=== PATIENT | female | born 1930 | race Caucasian/White ===

== ENCOUNTER → 2017-09-21 | Outpatient (CLI) | payer MEDICARE, OTHER ==
[~2017-09-21] MED LIST: AFRIN15 M1 INH; ALLOPURINOL300 MG PO; ALPRAZOLAM0.25 M1 PO; ALPRAZOLAM0.25 MG PO; AMITRIPTYLINE H25 MG PO; AMLODIPINE BESY10 MG PO; ASA81 MG PO; ASPIR 8181 MG PO; ASPIRIN81 MG; ASPIRIN81 MG PEG; B-122500 MCG PO; BACTRIM DS1 EA PO; CARAFATE1 G1 PO; CARVEDILOL12.5 MG PO; CARVEDILOL25 MG PO; CEFPODOXIME PR200 MG PO; CEFUROXIME250 MG PO; CIPRO500 MG PO; DEXILANT60 MG PO; FEROSUL325 M1 PO; FERROUS SULFAT325 MG PO; FUROSEMIDE20 MG PO; FUROSEMIDE40 MG PO; GABAPENTIN300 MG PO; HEMOCYTE324 MG PO; HUMALOG100 UNITS/ SQ; LANTUS SOL300 UNIT/3 SC; LANTUS100 UNIT/1 SQ; LANTUS100 UNITS/ SQ; LEVOTHYROXINE50 MCG PO; LISINOPRIL10 MG PO; METHENAMINE HIPP1 GM PO; METOCLOPRAMIDE10 MG PO; METRONIDAZOLE500 MG PO; NITROFURANTOIN100 MG PO; NITROSTAT0.3 MG SL; NITROSTAT0.4 MG PO; NORVASC10 MG PO; NORVASC5 MG PO; NOVOLOG100 UNIT/1 SQ; NOVOLOG100 UNITS1 SQ; OMEPRAZOLE40 MG PO; PANTOPRAZOLE SO40 MG PO; POTASSIUM CITR10 ME1 PO; PROMETHAZINE HC25 M1 PO; TAMSULOSIN HCL0.4 MG PO; TRICOR145 MG PO; TYLENOL # 31 EA PO; VITAMIN D2000 UNIT PO; Z MELATONIN PO; Z TYLENOL PO; Z.0.ADVAIR 250-501 E IH; Z.0.AMBIEN5 MG PO; Z.0.AMITRIPTYLINE H5 PO; Z.0.AMLODIPINE BES2. PO; Z.0.CLONAZEPAM0.5 M1 PO; Z.0.CLONIDINE HCL0.1 PO; Z.0.CLONIDINE HCL0.3 PO; Z.0.COREG6.25 MG PO; Z.0.COZAAR50 MG PO; Z.0.DETROL LA4 MG PO; Z.0.DEXILANT60 MG PO; Z.0.GABAPENTIN300 MG PO; Z.0.LANTUS100 UNIT/1 SQ; Z.0.LEVOTHYROXINE50 PO; Z.0.LUNESTA3 MG PO; Z.0.LYRICA50 MG PO; Z.0.PANTOPRAZOLE SO4 PO; Z.0.POTASSIUM CITR10 PO; Z.0.PREDNISONE20 MG; Z.0.RAPAFLO8 MG PO; Z.0.REGLAN10 MG PO; Z.0.TAMSULOSIN HCL0. PO; Z.0.TRICOR145 MG PO; Z.0.VITAMIN D2000 UN PO; Z.0.VITAMIN D50000 U PO; Z.0.XOPENEX1.25 MG/3 IH; Z.1.AMOXICILLIN500 M PO; Z.1.HUMALOG100 UNIT/ SC; Z.1.HUMALOG100 UNIT/ SQ; ZOLPIDEM TARTRA10 MG PO; [UNRECOGNIZED DRUG - OTHER] PO; [UNRECOGNIZED DRUG - OTHER] TD
--- NOTE | 2017-09-21 12:59 | Diagnostic Imaging Report ---
PROCEDURE:US RETROPERITONEAL ( KIDNEY ). COMPARISON:CT abdomen/pelvis 06/12/16, renal ultrasound 08/12/2009 INDICATIONS:CHRONIC KIDNEY DISEASE STAGE III TECHNIQUE: Mills-scale and color sonographic images of the bilateral kidneys and bladder where obtained in transverse and longitudinal planes. FINDINGS: RIGHT KIDNEY: Measures 11.3 cm in length. Transverse cortical thickness is 10 mm (previously, 13 mm). Renal sinus fat is prominent. Cysts: None Solid masses: None Stones: None Hydronephrosis: None Echogenicity: Normal LEFT KIDNEY: Measures 12.1 cm in length. Transverse cortical thickness is 16 mm (previously, 17 mm). Renal sinus fat is prominent. Cysts: None Solid masses: None Stones: None Hydronephrosis: None Echogenicity: Normal Bladder: Well-distended and normal. Renal jets are visible. Prevoid volume is 134.5 cc. Postvoid volume is 10.9 cc. No post void residual. CONCLUSION: Mildly atrophic kidneys. Normal renal echotexture without mass. No hydronephrosis. No post void residual in the bladder. Dictated by: Hillary Mendoza M.D. on 09/21/2017 at 12:58 Electronically approved by: Hillary Mendoza M.D. on 09/21/2017 at 12:58
--- NOTE | 2017-09-21 13:02 | Diagnostic Imaging Report ---
PROCEDURE:US PELVIC (NON OB) SANDERS OR F/U COMPARISON:Renal ultrasound 08/12/2009. INDICATIONS:CHRONIC KIDNEY DISEASE STAGE III TECHNIQUE:Pelvic ultrasound using transabdominal technique. CONCLUSION: Please see accession number [id number] for report. Electronically approved by: Hillary Mendoza M.D. on 09/21/2017 at 13:01
== END ==
LOC: US 11:22
PROVIDERS: ATTEND Internal Medicine Nephrology
DX: N18.3 Chronic kidney disease, stage 3 (moderate) (principal)
CPT/HCPCS: 76770; 76857

== ENCOUNTER 2017-10-31 18:01 | Inpatient (IN) | payer MEDICARE, OTHER ==
[~2017-10-31] VITALS: Ht 160 cm; Wt 73.9 kg
--- OUTSIDE RECORDS SUMMARY | 2017-10-31 18:08 | XMS REPORT ---
[facility] Address Unknown Phone Unavailable Care Team Providers Care Oracle Ebs Developer Name Role Phone YAMILETH CARROLL Unavailable Unavailable SRINIVAS GIMENEZ Unavailable Unavailable NIRANJAN SANTACRUZ Unavailable Unavailable Problems This patient has no known problems. Allergies, Adverse Reactions, Alerts This patient has no known allergies or adverse reactions. Medications This patient has no known medications. Results Test Description Test Time Test Comments Text Results Atomic Results Result Comments US RENAL RETROPERITONEAL COMP [place] [address] Patient Name: BABS QUILES MR #: [id number] : 1930 Age/Sex: 87/F Req #: [id number] Adm Physician: Ordered by: YAMILETH CARROLL MD Report #: [id number] Location: Room/Bed: Procedure: [id number] US/US RENAL RETROPERITONEAL COMP Exam Date: Exam Time: REPORT STATUS: Signed PROCEDURE: US RETROPERITONEAL ( KIDNEY ). COMPARISON: CT abdomen/pelvis 06/12/16, renal ultrasound 08/12/2009 INDICATIONS: CHRONIC KIDNEY DISEASE STAGE III TECHNIQUE: Mills-scale and color sonographic images of the bilateral kidneys and bladder where obtained in transverse and longitudinal planes. FINDINGS: RIGHT KIDNEY: Measures 11.3 cm in length. Transverse cortical thickness is 10 mm (previously, 13 mm). Renal sinus fat is prominent. Cysts: None Solid masses: None Stones: None Hydronephrosis: None Echogenicity: Normal LEFT KIDNEY: Measures 12.1 cm in length. Transverse cortical thickness is 16 mm (previously, 17 mm). Renal sinus fat is prominent. Cysts: None Solid masses: None Stones: None Hydronephrosis: None Echogenicity: Normal Bladder: Well-distended and normal. Renal jets are visible. Prevoid volume is 134.5 cc. Postvoid volume is 10.9 cc. No post void residual. CONCLUSION: Mildly atrophic kidneys. Normal renal echotexture without mass. No hydronephrosis. No post void residual in the bladder. Dictated by: Ese Mendoza M.D. on 09/21 at 12:58 Electronically approved by: Ese Mendoza M.D. on 09/21 at 12:58 Dictated By: ESE MENDOZA MD 1258 Transcribed By : TONY on 09/21/17 1258 COPY TO: YAMILETH CARROLL MD US PELVIC (NON OB) SANDERS OR F/U [place] [address] Patient Name: BABS QUILES MR #: [id number] : 1930 Age/Sex: 87/F Req #: [id number] Adm Physician: Ordered by: YAMILETH CARROLL MD Report #: [id number] Location: US Room/Bed: Procedure: [id number] US/US PELVIC (NON OB) SANDERS OR F/U Exam Date: Exam Time: REPORT STATUS: Signed PROCEDURE: US PELVIC (NON OB) SANDERS OR F/U COMPARISON: Renal ultrasound 08/12/2009. INDICATIONS: CHRONIC KIDNEY DISEASE STAGE III TECHNIQUE: Pelvic ultrasound using transabdominal technique. CONCLUSION: Please see accession number [id number] for report. Electronically approved by: Ese Mendoza M.D. on 09/21/2017 at 13:01 Dictated By: ESE MENDOZA MD 1301 Transcribed By: TONY on 09/21/17 1301 COPY TO: YAMILETH CARROLL MD CT CERVICAL SPINE WO [place] [address] Patient Name: BABS QUILES MR #: [id number] : 1930 Age/Sex: 87/F Req #: [id number] Adm Physician: Ordered by: SRINIVAS GIMENEZ MD Report #: [id number] Location: ER Room/Bed: Procedure: [id number] CT/CT CERVICAL SPINE WO Exam Date: 05/23/17 Exam Time: 1132 REPORT STATUS: Signed Examination: CT CERVICAL SPINE WITHOUT CONTRAST HISTORY:Neck and left arm pain. COMPARISON:None. TECHNIQUE: Multidetector helical axial images were obtained without contrast from the foramen magnum to T1. Coronal and sagittal reformatted images were done. Bone and soft tissue windows were evaluated. FINDINGS: Alignment:Normal alignment and lordosis.. Vertebrae: Normal height and density. No acute fracture, infection or neoplasm. Disc space heights: Normal height with vacuum phenomenon at C4-C5 and C5-C6. Caliber of spinal canal: Developmentally normal. Posterior fossa and craniocervical junction: Foramen magnum patent. No Chiari 1 malformation. Soft tissues: Atherosclerotic calcification of the bilateral carotid bifurcations. Individual intervertebral disc levels: Anterior bridging osteophytosis from C5 through T1. C1-C2: Severe degenerative narrowing. C2-C3: Small central disc protrusion. Mild left neural foraminal narrowing due to uncovertebral and bilateral facet arthropathy. No right foraminal or canal stenosis. C3-C4: Small central disc osteophyte protrusion without canal stenosis. Mild right neural foraminal narrowing due to right uncovertebral and facet arthropathy. No left foraminal narrowing. C4-C5: Diffuse disc osteophyte complex, atherosclerotic calcification of the mid V2 segment of the right vertebral artery and bilateral uncovertebral arthropathy result in moderate to severe right foraminal narrowing. No left foraminal or canal stenosis. C5-C6: Bilateral uncovertebral and facet arthropathy. No canal or foraminal stenosis. C6-C7: Right uncovertebral and facet arthropathy result in mild right neural foraminal narrowing. No canal or left foraminal stenosis. C7-T1: No abnormality. IMPRESSION: 1. Degenerative change from C2-C3 through C6-C7 without canal stenosis. 2. Severe right foraminal narrowing at C4-C5, as above. 3. No acute abnormalities. Signed by: Dr. Mone Ko M.D. on 05/23/2017 12:09 PM Dictated By: MONE LEAL MD 08 Transcribed By: MARIAELENA on 05/23/171208 COPY TO: SRINIVAS GIMENEZ MD CHEST XRAY LINE PLACEMENT [place] [address] Patient Name: BABS QUILES MR #: [id number] : 1930 Age/Sex: 87/F Req #: [id number] Adm Physician: Ordered by: NIRANJAN SANTACRUZ MD Report #: [id number] Location: DX Room/Bed: Procedure: [id number] DX/CHEST XRAY LINE PLACEMENT Exam Date: 05/16/17 Exam Time: 1315 REPORT STATUS: Signed PROCEDURE: A single AP view of the chest. COMPARISON: Portable chest 01/16/2017. INDICATIONS: PICC LINE PLACEMENT FINDINGS: Lines/tubes: Right peripherally inserted central venous catheter with tip projecting over the expected region of the right atrium. Lungs: Left lung base atelectasis. Right lung is clear. No parenchymal mass. Pleura: There is no pleural effusion or pneumothorax. Heart and mediastinum: The heart and the mediastinum are unremarkable. Bones: No acute bony abnormality. Degenerative changes of the thoracic spine. IMPRESSION: No acute radiographic abnormality. Dictated by: Gaby Healy M.D. on 2016 at 13:51 Electronically approved by: Gaby Healy M.D. on 2016 at 13:51 Dictated By: GABY HEALY MD 1351 Transcribed By: TONY on 05/16/17 1351 COPY TO: NIRANJAN SANTACRUZ MD
[2017-10-31 20:06] LABS: BASOPHILS % 0.4 % (0.0-1.0); EOSINOPHILS # (AUTO) 0.5 (0.0-0.4); EOSINOPHILS % 6.6 % (0.0-6.0); HEMATOCRIT 37.1 % (34.2-44.1); HEMOGLOBIN 12.4 g/dL (12.0-16.0); LYMPHOCYTES # (AUTO) 1.9 (1.0-3.2); LYMPHOCYTES % 23.6 % (18.0-39.1); MEAN CORPUSCULAR HEMOGLOBIN 28.6 pg (28-32); MEAN CORPUSCULAR HGB CONC 33.4 g/dL (31-35); MEAN CORPUSCULAR VOLUME 85.5 fL (81-99); MONOCYTES # (AUTO) 0.4 (0.2-0.8); NEUTROPHILS % 64.1 % (38.7-80.0); PLATELET COUNT 147 x10e3/uL (140-360); RED BLOOD COUNT 4.34 x10e6/uL (3.6-5.1); RED CELL DISTRIBUTION WIDTH 15.4 % (11.7-14.4)
[2017-10-31 20:15] LABS: INR 1.18; PROTHROMBIN TIME 14.1 seconds (11.9-14.5)
[2017-10-31 20:16] LABS: PARTIAL THROMBOPLASTIN TIME 30.2 seconds (23.8-35.5)
[2017-10-31] MEDS ORDERED: CEFEPIME HCL 2 GM VIAL IV STA (20:20)
[2017-10-31 20:25] LABS: CLARITY,URINE TURBID (CLEAR); COLOR,URINE YELLOW (YELLOW)
--- NOTE | 2017-10-31 20:25 | Diagnostic Imaging Report ---
Portable chest x-ray CPT code 83218 INDICATION: Chest pain COMPARISON: Chest x-ray 01/16/2017, CT chest 05/31/2016 FINDINGS: Frontal view of the chest obtained at 2013 hours. The cardiac silhouette is mildly enlarged but stable. The intrapulmonary vascular marking are normal. The lungs demonstrate diffuse hyperinflation and calcifications of the tracheobronchial tree. Streaky bands of subsegmental atelectasis in the left midlung field. The costophrenic angles are sharp. There is no pneumothorax. The osseous structures are diffusely demineralized. No focal osseous lesions. Visualized upper abdomen is unremarkable. IMPRESSION: 1. Mild cardiomegaly. No vascular congestion. 2. Streaky airspace opacities in the left midlung field suggestive of atelectasis. No evidence of infiltrate. Signed by: Dr. Hillary Mendoza MD on 10/31/2017 8:21 PM
[2017-10-31 20:26] LABS: BILIRUBIN,URINE NEGATIVE (NEGATIVE); KETONES,URINE NEGATIVE (NEGATIVE); LEUKOCYTE ESTERASE ,URINE TRACE (NEGATIVE); NITRITE,URINE NEGATIVE (NEGATIVE); PROTEIN,URINE DIPSTICK TRACE (NEGATIVE); URINE UROBILINOGEN 0.2 mg/dL (0.2 - 1)
[2017-10-31 20:26] LABS: ALBUMIN 4.2 g/dL (3.5-5.0); ALBUMIN/GLOBULIN RATIO 1.1 (0.8-2.0); ANION GAP 15.4 mmol/L (8-16); CALCIUM 10.4 mg/dL (8.4-10.2); CREATININE, SERUM 1.88 mg/dL (0.57-1.11); POTASSIUM 3.4 mmol/L (3.5-5.1)
[2017-10-31] MEDS ORDERED: DEXTROSE 50% SYRINGE 50 ML IV STA ×2 (20:30→20:32)
[2017-10-31] MEDS ORDERED: ASPIRIN 81 MG CHEW TAB PO ONE (20:30)
[2017-10-31 20:32] LABS: CREATINE KINASE MB 6.6 ng/mL (0-5.0)
[2017-10-31] MEDS ORDERED: DEXTROSE 50% SYRINGE 50 ML IV ONE (20:34)
[2017-10-31 20:40] LABS: BACTERIA,URINE MODERATE /HPF; EPITHELIAL CELLS,URINE FEW /LPF
[2017-10-31] MEDS ORDERED: MEROPENEM 500MG 500 MG in SODIUM CHLORIDE 0.9% 50ML 50 ML IV STA (20:48)
[2017-10-31] MEDS ORDERED: HEPARIN 25,000U/0.45% NS 250ML 700 UNIT in SODIUM CHLORIDE 0.9% 250ML 0 ML IV SCH (21:15)
[2017-10-31] MEDS ORDERED: HEPARIN SOD (PORCINE) 5,000 UNIT/ML VIAL IV ONE (21:15)
[2017-10-31] MEDS ORDERED: DEXTROSE 50% SYRINGE 50 ML IV PRN (21:15)
[2017-10-31] MEDS ORDERED: ONDANSETRON HCL INJ 2 MG/ML VIAL IV PRN (21:15)
[2017-10-31] MEDS: NITROGLYCERIN 2% OINT 1 GM PKT TOP SCH (22:09)
[2017-10-31] MEDS: FAMOTIDINE 20 MG/2 ML VIAL IV SCH (22:09)
[2017-10-31] MEDS ORDERED: HYDRALAZINE HCL 20 MG/ML VIAL IV PRN (22:45)
[2017-10-31 23:53] VITALS: BP 163/62
[2017-11-01] VITALS (8 sets, daily range): BP systolic 138–176; BP diastolic 64–79
[2017-11-01] MEDS: NITROGLYCERIN 2% OINT 1 GM PKT TOP SCH (02:44)
[2017-11-01 06:48] LABS: BASOPHILS % 0.6 % (0.0-1.0); EOSINOPHILS # (AUTO) 0.4 (0.0-0.4); EOSINOPHILS % 6.3 % (0.0-6.0); HEMATOCRIT 31.5 % (34.2-44.1); LYMPHOCYTES # (AUTO) 1.6 (1.0-3.2); LYMPHOCYTES % 22.6 % (18.0-39.1); MEAN CORPUSCULAR HEMOGLOBIN 28.8 pg (28-32); MEAN CORPUSCULAR HGB CONC 34.6 g/dL (31-35); MEAN CORPUSCULAR VOLUME 83.3 fL (81-99); MONOCYTES # (AUTO) 0.4 (0.2-0.8); MONOCYTES % 6.3 % (4.4-11.3); NEUTROPHILS # (AUTO) 4.5 (2.1-6.9); NEUTROPHILS % 63.9 % (38.7-80.0); PLATELET COUNT 119 x10e3/uL (140-360); RED BLOOD COUNT 3.78 x10e6/uL (3.6-5.1); RED CELL DISTRIBUTION WIDTH 15.4 % (11.7-14.4)
[2017-11-01 07:04] LABS: HEMOGLOBIN 10.9 g/dL (12.0-16.0)
[2017-11-01 07:18] LABS: CREATINE KINASE MB 4.7 ng/mL (0-5.0)
[2017-11-01 07:43] LABS: ALANINE AMINOTRANSFERASE 9 IU/L (0-55); ALBUMIN 3.5 g/dL (3.5-5.0); ALBUMIN/GLOBULIN RATIO 1.1 (0.8-2.0); ALKALINE PHOSPHATASE 64 IU/L (40-150); ANION GAP 13.8 mmol/L (8-16); BLOOD UREA NITROGEN 54 mg/dL (7-26); BUN/CREATININE RATIO 36 (6-25); CALCIUM 9.5 mg/dL (8.4-10.2); CARBON DIOXIDE 25 mmol/L (22-29); CHLORIDE 107 mmol/L (98-107); CHOL/HDL RATIO 4.9 (3.0-3.6); CHOLESTEROL 171 MD/DL (0-199); CREATININE, SERUM 1.51 mg/dL (0.57-1.11); EST GLOMERULAR FILTRATION RATE 33 ML/MIN (60-); GLUCOSE 181 mg/dL (74-118); HDL CHOLESTEROL 35 MG/DL (40-60); POTASSIUM 3.8 mmol/L (3.5-5.1); SODIUM 142 mmol/L (136-145); TRIGLYCERIDES 506 MG/DL (0-149)
[2017-11-01 07:53] LABS: HEMATOCRIT 33.3 % (34.2-44.1); HEMOGLOBIN 11.3 g/dL (12.0-16.0)
[2017-11-01] MEDS: ALLOPURINOL 300 MG TAB PO SCH ×2 (09:00→09:45)
[2017-11-01] MEDS ORDERED: FENOFIBRATE 145 MG TAB PO SCH (09:00)
--- NOTE | 2017-11-01 09:25 | Consultation ---
DATE OF CONSULTATION: October 31, 2017 REASON FOR CONSULTATION: Chest pain. CONSULTING PHYSICIAN: Dr. Felix HPI: This is a pleasant 87-year-old female that presented with chest pain. According to the patient, yesterday she started having left substernal chest pain that felt like a stabbing pressure on a scale of 5/10 with no radiation. She stated it comes and goes. She took 1 nitro with no relief, and that she decided to come into the emergency room for evaluation. She denies any palpitations, any dizziness, any diaphoresis, or headaches. Troponin times 2 negative. EKG with no S/T abnormalities. Chest x-ray showed mild cardiomegaly with no vascular congestion. PAST MEDICAL HISTORY: Hypertension, diabetes, CHF, UTI, hyperlipidemia, neuropathy, heel spur, GERD, COPD, GI bleed, hypothyroidism, depression, renal insufficiency. PAST SURGICAL HISTORY: Cholecystectomy, bladder surgery, left breast lumpectomy, and partial hysterectomy. FAMILY HISTORY: Noncontributory. SOCIAL HISTORY: She lives at home with the family. ALLERGIES: SHE HAS MULTIPLE ALLERGIES. SEE CHART. REVIEW OF SYSTEMS: Negative except as mentioned above. PHYSICAL EXAMINATION VITAL SIGNS: Temperature 97, heart rate 82, blood pressure 138/65, respirations 14, oxygen saturation 97% on 2 L nasal cannula. GENERAL: She is alert, awake and oriented times 3. HEENT: Mucous membranes moist. NECK: Supple. LUNGS: Bilateral clear to auscultation. CARDIOVASCULAR: S1 and S2 present. ABDOMEN: Soft. NEUROLOGICAL: Intact. EXTREMITIES: With no edema. LABS: Sodium 142, potassium 3.8, chloride 107, CO2 25, BUN 54, creatinine 1.51, glucose 181. White blood cells 6.98, hemoglobin 10.9, hematocrit 35.5, and platelets 119,000. PT 14.1, PTT 30.2 and INR 1.18. IMPRESSION 1. Chest pain. 2. Hyperlipidemia. 3. Renal insufficiency. 4. Diabetes. 5. History of congestive heart failure. ASSESSMENT AND PLAN: She had a recent Lexiscan stress test 6 months ago in the clinic that was negative for any ischemia. Will go ahead and get an echocardiogram to reassess the LV and the valve function. Will get serial cardiac enzymes. Will continue nitro, statin and beta misti. Will go ahead and discontinue the heparin drip. Chest pain resolved. Further cardiac workup pending clinical course. Thank you for this consultation. DICTATED BY ALLYN MEDINA NP Job#: [id number] RI
[2017-11-01] MEDS: ISOSORBIDE MONONITRATE 30 MG TAB CR PO SCH ×2 (09:44→17:33)
[2017-11-01] MEDS: ASPIRIN 81 MG ENTERIC COATED PO SCH (09:44)
[2017-11-01] MEDS: CARVEDILOL 12.5 MG TAB PO SCH ×2 (09:44→21:14)
[2017-11-01] MEDS: INSULIN REGULAR, HUMAN 100 UNIT/1 ML 3ML VIAL SQ SCH ×4 (09:45→21:00)
[2017-11-01] MEDS: FAMOTIDINE 20 MG/2 ML VIAL IV SCH ×2 (09:45→21:14)
[2017-11-01] MEDS: FENOFIBRATE 145 MG TAB PO SCH (09:45)
--- NOTE | 2017-11-01 10:23 | History and Physical ---
CHIEF COMPLAINT: Chest pain. HISTORY OF PRESENT ILLNESS: This is an 87-year-old white woman who presented to [facility] Emergency Room with sudden onset of nonradiating left-sided chest pain. The patient describes the chest pain as a sharp nature, and it occurs intermittently. She is currently chest pain-free at this time. The patient also complains of shortness of breath, but this is a chronic issue since she suffers from diastolic heart failure and chronic bronchitis. The patient was also recently told that she has ESBL-producing E. coli urinary tract infection and was supposed to start a new antibiotic soon. The patient states she has urinary frequency as well as dysuria. In the emergency room, the patient had a chest x-ray done, which revealed mild cardiomegaly with streaky airspace opacities in the left mid lung suggestive of atelectasis, but no clear evidence of infiltrate was appreciated. In the emergency room, the patient was found to have a white blood cell count of 7800 with 64% segmented neutrophils. The patient's BUN and creatinine on admission were 55 and 1.22 respectively, but this morning they are 54 and 1.51 respectively. The patient's first 2 sets of cardiac enzymes were normal. The patient's triglycerides were elevated at a level of 506. The patient's B-type natriuretic peptide level was normal at 99. Urinalysis performed in the emergency room did reveal moderate bacteria with 11 to 20 white blood cells per high-power field and trace leukocyte esterase. The urine was also described as turbid and yellow in color. The patient was admitted for further evaluation and treatment. Cardiology states that within the last 6 months the patient had a normal outpatient nuclear stress test. REVIEW OF SYSTEMS GENERAL: No fever or chills. Weight has been stable. HEENT: No headache. No vision changes. CARDIOVASCULAR/RESPIRATORY: The patient complains of nonradiating left-sided chest pain, sharp in nature. Also complains of shortness of breath but not associated with the chest pain. No cough or chest congestion. GI: No nausea, vomiting, or constipation. : The patient complains of frequent urination as well as dysuria. As previously stated, the patient was diagnosed with ESBL-producing bacterial urinary tract infection. NEUROMUSCULAR: Denies any limb weakness but does complain of numbness in her feet secondary to diabetic peripheral neuropathy. PAST MEDICAL HISTORY 1. Recurrent urinary tract infections. 2. Stage-3 chronic kidney disease. 3. Chronic diastolic congestive heart failure. 4. Chronic nocturnal oxygen use. 5. 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 6. Chronic bronchitis. 7. Cervical disk disease with episodes of radiculitis. 8. Hypertensive heart disease. 9. Hypothyroidism. 10. Dyslipidemia 11. GERD. SURGICAL HISTORY 1. Laparoscopic cholecystectomy. 2. Abdominal hernia repair. 3. Left breast lumpectomy (benign). FAMILY HISTORY: Mother of colon cancer. Father had type-2 diabetes mellitus. ALLERGIES 1. DARVOCET. 2. PENICILLIN. 3. MACROBID. SOCIAL HISTORY: This woman is and lives with her . No history of tobacco use. The patient states she drinks alcohol 1 drink a day. HOME MEDICATIONS 1. Losartan 25 mg a day. 2. Pantoprazole 40 mg b.i.d. 3. Xyzal 5 mg daily. 4. Vitamin D3 2,000 units daily. 5. Cipro 250 mg on Tuesday, Tuesday, and Tuesday (urinary tract infection prophylaxis). 6. Humalog insulin 10 units t.i.d. with meals. 7. Lantus insulin 15 units subcutaneous b.i.d. 8. Isosorbide mononitrate 30 mg daily. 9. Methenamine 1 tablet b.i.d. 10. Levothyroxine 50 mcg daily. 11. Potassium chloride 10 mEq daily. 12. Gabapentin 300 mg t.i.d. 13. Furosemide 40 mg b.i.d. 14. Ferrous sulfate 325 mg on Tuesday, Tuesday, and Tuesday. 15. Carvedilol 25 mg b.i.d. 16. Aspirin 81 mg daily. 17. Amitriptyline 25 mg each bedtime. PHYSICAL EXAMINATION GENERAL: She is awake, alert and fully oriented. She is in no distress. Very pleasant and cooperative with exam. VITAL SIGNS: Blood pressure is 175/75, pulse 68, respiratory rate 18, temperature 97.1, oxygen saturation 98% on 2 L oxygen via nasal cannula. Height is 5 feet 3 inches, and weight is 163 pounds. Calculated body mass index is 29. INTEGUMENT: Skin is warm and dry. No pallor, jaundice or diaphoresis. HEENT: Anicteric sclerae with moist mucous membranes. NECK: Supple. CARDIOVASCULAR: Distant heart sounds. Regular rate and rhythm. LUNGS: No rales. No rhonchi. No wheezes. ABDOMEN: Benign. EXTREMITIES: No edema or deformity. NEUROLOGIC: Intact. DIAGNOSES 1. Extended-spectrum ufug-dwtidmnjg-drorxeneg E. coli urinary tract infection. 2. Vptda-dl-ywvhrcd renal failure. 3. Chronic bronchitis. 4. Type-2 diabetes mellitus with severe neuropathy. 5. Chronic diastolic congestive heart failure. 6. Atypical chest pain. 7. Left-sided pneumonia, likely gram-negative duong. PLAN 1. Consult cardiology. 2. Rule out myocardial infarction. 3. Follow renal function. 4. Continue intravenous antibiotics. 5. Blood glucose monitoring and control. 6. Continue congestive heart failure medical management with losartan, carvedilol and furosemide. I spent an hour in the care of this patient. Job#: [id number] MH MTDD
[2017-11-01] MEDS ORDERED: CEFEPIME HCL 1 GM VIAL IV SCH ×2 (14:00)
[2017-11-01] MEDS ORDERED: MEROPENEM 500MG 500 MG in SODIUM CHLORIDE 0.9% 50ML 50 ML IV SCH (14:00)
[2017-11-01] MEDS: MEROPENEM 500 MG VIAL IV SCH ×2 (15:12→21:15)
[2017-11-01 15:14] LABS: CREATINE KINASE MB 4.9 ng/mL (0-5.0)
--- NOTE | 2017-11-01 15:56 | Consultation ---
DATE OF CONSULTATION: November 01, 2017 NEPHROLOGY CONSULTATION REASON FOR THE CONSULT: Chronic kidney disease. HPI: This is a pleasant 87-year-old female who follows with Dr. Liriano as an outpatient. She came to the ER with substernal chest pain, nonradiating, scale 6/10, on and off and described it as pressure, worse with exertion, and mild shortness of breath. She uses oxygen during the night and p.r.n during the day. She is known to have hypertension, diabetes, CKD 3, chronic bronchitis, CHF diastolic, and recurrent UTIs with recent urine culture showing E. coli ESBL, sensitive only to few medications in the IV form; however, she has been on ciprofloxacin p.o. for prophylaxis and follows with Dr. Leong as an outpatient. She was told that she has to come to the ER given her resistance to p.o. antibiotics. In the ER, the patient was admitted. She is having some frequency and dysuria and today, she does not have a chest pain as we are covering today. She is afebrile and she is on nasal cannula oxygen. We are consulted given she has history of CKD. PAST MEDICAL HISTORY: As mentioned above. PAST SURGICAL HISTORY: Status post cholecystectomy and abdominal hernia repair, left breast lumpectomy, which was benign as per records. REVIEW OF SYSTEMS: Negative otherwise. FAMILY HISTORY: Positive for hypertension and diabetes. ALLERGIES: SHE HAS MULTIPLE ALLERGIES PER RECORDS. PLEASE REFER TO THE RECORDS. SOCIAL HISTORY: She is , living with her . No smoking, alcohol, or IV drug abuse. PHYSICAL EXAMINATION VITAL SIGNS: Today, blood pressure 175/75, heart rate 69, temperature 97.1. GENERAL APPEARANCE: No acute distress. HEAD, EARS, EYES, NECK: No lymphadenopathy. HEART: Regular rate and rhythm. LUNGS: Bibasilar rales. ABDOMEN: Soft, nontender. EXTREMITIES: No edema. DIAGNOSTIC DATA: She had a chest x-ray was done and it showed mild cardiomegaly, no vascular congestion, left mid lung field suggestive of atelectasis. LABORATORY DATA: Today, her hemoglobin 11.3, white count 7.8. She has sodium of 142, potassium 3.8, BUN 54, creatinine from 1.8 came down to 1.5, and her BNP is 99.3 and her albumin is 3.5, and her cardiac enzymes are negative with troponin 0.007. ASSESSMENT AND PLAN 1. Chronic kidney disease, stage 3. The patient's creatinine baseline is between 1.2 to 1.4. It was elevated at 1.8, could be in the setting of urinary tract infection. The patient's creatinine today is back to baseline. We will not do further workup. We will just monitor her labs and kidney function with the urine output closely. 2. Electrolytes. Her potassium is within normal range. 3. Hypertension. Hold on SHY inhibitor and ARB until creatinine stabilizes. In the meantime, given her blood pressure is high, I am going to add nifedipine and continue carvedilol. 4. Diabetes. Monitor blood sugar. She is on insulin per primary team. 5. Recurrent urinary tract infection with extended-spectrum beta-lactamases Escherichia coli, sensitive only to intravenous medications. The patient is on meropenem per ID, adjusted according to GFR and the patient is requesting if she can get that at home and get a PICC line versus going to long-term acute care facility for intravenous antibiotics. 6. Chronic obstructive pulmonary disease and bronchitis. She uses oxygen at night. Encourage spirometer given atelectasis on chest x-ray. 7. Volume status. Looks clinically compensated on chest x-ray with no congestion. 8. Chest pain, resolved. Cardiac enzymes are negative. Thank you for the consult. We will update the primary team for further recommendations. Job#: [id number] MARIZOL
--- NOTE | 2017-11-01 16:15 | Consultation ---
DATE OF CONSULTATION: November 01, 2017 REASON: UTI. This patient is well known to me. She is a very pleasant 87-year-old white female who has history of bacteriuria, clinical and on suppressive oral antibiotic as an outpatient. She came to the emergency room yesterday complaining of chest pain. However, urine culture was done and recently showed she had E. coli, which was ESBL. The patient when I saw her she is complaining of urgency and frequency and some suprapubic discomfort, which she had for the last couple of days according to her. Patient has been taking Cipro as an outpatient. The patient does have an underlying history of chronic kidney disease, which she has been seen by nephrology as an outpatient. The patient was admitted for chest pain. Infectious disease was consulted because her ESBL and recommended to start on meropenem. Patient is currently laying in bed comfortably. She is complaining of some urgency and frequency. PAST MEDICAL HISTORY: Bacteruria, recurrent UTI, chronic kidney disease, stage 3, chronic congestive heart failure, severe osteoarthritis, chronic nocturnal oxygen use, diabetes mellitus, type 2 with peripheral neuropathy, chronic bronchitis, cervical disk disease, degenerative joint disease of the spine, hypertension with heart disease, hypothyroidism, dyslipidemia, GERD. SURGICAL HISTORY: Laparoscopic cholecystectomy, abdominal hernia repair, left breast lumpectomy. SOCIAL HISTORY: Does not smoke. No drug abuse or alcohol abuse. ALLERGIES: DARVOCET, INSULIN AND MACROBID. REVIEW OF SYSTEMS HEENT: At the present time, there is no headache, vision change or hearing change. GI: There is no nausea. No vomiting. No diarrhea. CARDIAC: There is no arrhythmia or chest pain at the present time or arrhythmia. JOINTS: She has chronic aches and pains, but nothing really acute. PSYCH: There is no depression or anxiety. All other systems within normal limits. Laboratory data reviewed. MEDICATION LIST: She is on: 1. Losartan 25 mg daily. 2. Pantoprazole. 3. Xyzal. 4. Vitamin D3. 5. She was on Cipro. 6. Insulin. 7. Levothyroxine. 8. Potassium chloride. 9. Gabapentin. 10. Carvedilol. REVIEW OF SYSTEMS: At the present time, 14-point all reviewed and within normal limits. Her chart was reviewed. LABORATORY DATA: Reviewed. Her blood cultures are still pending. Her urine culture showed gram-negative rods. White count 7.85, hemoglobin 12, hematocrit 37. Her sodium is 142, potassium 3.8, creatinine 1.5. PHYSICAL EXAMINATION GENERAL: She is currently alert and oriented. Does not seem to be in acute distress. VITALS: Stable. Currently afebrile. HEENT: Normocephalic. Not icteric. NECK: Supple. No JVD. No thyromegaly. CHEST: Clear bilaterally. HEART: S1 and S2. No S3, S4 or murmur. ABDOMEN: Soft. Bowel sounds present. No tenderness. EXTREMITIES: No edema. IMPRESSION 1. Urinary tract infection/probably cystitis: May be early pyelonephritis. It is hard to tell. Will put her on meropenem 500 mg. Discussed with renal. Will do q.8 h. for the time being. Recheck CBC. Recheck Chem panel. Will follow with you. 2. Chest pain: Cardiology is following. 3. Other medical problems listed above: All seem to be stable at the present time. Discussed with internal medicine. Job#: [id number] ISHMAEL
[2017-11-01] MEDS ORDERED: ACETAMINOPHEN 325 MG TAB PO PRN (23:30)
[2017-11-01] MEDS ORDERED: TRAMADOL HCL 50 MG TAB PO PRN (23:30)
[2017-11-02] VITALS: BP 175/74
[2017-11-02 04:00] VITALS: BP 145/91
[2017-11-02 06:35] LABS: BASOPHILS % 0.5 % (0.0-1.0); EOSINOPHILS # (AUTO) 0.5 (0.0-0.4); HEMATOCRIT 33.1 % (34.2-44.1); HEMOGLOBIN 10.9 g/dL (12.0-16.0); LYMPHOCYTES # (AUTO) 1.2 (1.0-3.2); MEAN CORPUSCULAR HEMOGLOBIN 28.4 pg (28-32); MEAN CORPUSCULAR HGB CONC 32.9 g/dL (31-35); MEAN CORPUSCULAR VOLUME 86.2 fL (81-99); MONOCYTES # (AUTO) 0.4 (0.2-0.8); MONOCYTES % 6.9 % (4.4-11.3); NEUTROPHILS # (AUTO) 3.8 (2.1-6.9); NEUTROPHILS % 63.4 % (38.7-80.0); PLATELET COUNT 118 x10e3/uL (140-360); RED BLOOD COUNT 3.84 x10e6/uL (3.6-5.1); RED CELL DISTRIBUTION WIDTH 15.6 % (11.7-14.4)
[2017-11-02 06:56] LABS: ALBUMIN 3.5 g/dL (3.5-5.0); ALBUMIN/GLOBULIN RATIO 1.2 (0.8-2.0); ANION GAP 13.1 mmol/L (8-16); CALCIUM 9.6 mg/dL (8.4-10.2); CREATININE, SERUM 1.22 mg/dL (0.57-1.11); POTASSIUM 4.1 mmol/L (3.5-5.1)
[2017-11-02 08:43] VITALS: BP 200/86
[2017-11-02] MEDS ORDERED: NIFEDIPINE CR 30 MG TAB PO SCH (09:00)
[2017-11-02] MEDS: MEROPENEM 500 MG VIAL IV SCH ×2 (09:29→17:37)
[2017-11-02] MEDS: ASPIRIN 81 MG ENTERIC COATED PO SCH (09:29)
[2017-11-02] MEDS: CARVEDILOL 12.5 MG TAB PO SCH (09:29)
[2017-11-02] MEDS: FENOFIBRATE 145 MG TAB PO SCH (09:30)
[2017-11-02] MEDS: ISOSORBIDE MONONITRATE 30 MG TAB CR PO SCH ×2 (09:30→17:37)
[2017-11-02] MEDS: INSULIN REGULAR, HUMAN 100 UNIT/1 ML 3ML VIAL SQ SCH ×4 (09:30→17:39)
[2017-11-02] MEDS: ALLOPURINOL 300 MG TAB PO SCH (09:30)
[2017-11-02] MEDS: FAMOTIDINE 20 MG/2 ML VIAL IV SCH (09:30)
[2017-11-02 12:00] VITALS: BP 183/79
--- NOTE | 2017-11-02 13:48 | Diagnostic Imaging Report ---
PROCEDURE:CHEST XRAY LINE PLACEMENT TECHNIQUE:Portable AP chest INDICATION:PICC placement COMPARISON:[facility], DX, CHEST SINGLE (PORTABLE), 10/31/2017, 20:13. FINDINGS: See conclusion. CONCLUSION: 1. Right PICC terminating in the low SVC. 2. Trace left pleural effusion with adjacent airspace opacity in keeping with atelectasis and/or pneumonia. 3. Stable cardiomediastinal silhouette, with mild cardiomegaly and central vascular congestion. 4. Intact skeleton. Dictated by: Law Tena M.D. on 11/02/2017 at 13:49 Electronically approved by: Law Tena M.D. on 11/02/2017 at 13:49
[2017-11-02 16:00] VITALS: BP 166/72
[2017-11-02] MEDS ORDERED: FAMOTIDINE 20 MG TAB PO SCH (21:00)
[2017-11-03] MEDS ORDERED: NIFEDIPINE CR 30 MG TAB PO SCH (09:00)
--- NOTE | 2017-11-03 09:39 | Discharge Summary ---
ADMIT DIAGNOSES 1. Sepsis secondary to extended spectrum beta-lactamase Escherichia coli urinary tract infection. 2. Ysdtc-ne-tljufhf renal failure. 3. Chronic bronchitis. 4. 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 5. Chronic diastolic congestive heart failure. 6. Atypical chest pain. 7. Left-sided pneumonia, likely gram-negative duong. DISCHARGE DIAGNOSES 1. Sepsis secondary to extended spectrum beta-lactamase Escherichia coli urinary tract infection, resolving. 2. Left-sided pneumonia, likely gram-negative duong. 3. Keeav-kd-nhfigvg diastolic congestive heart failure. 4. Chronic bronchitis. 5. Acute renal failure, resolved. 6. Atypical chest pain, resolved. 7. Type 2 diabetes mellitus with diabetic peripheral neuropathy. HOSPITAL COURSE: This is an 87-year-old white woman was initially admitted to [facility] with the diagnosis of sepsis secondary to ESBL E. coli urinary tract infection. During this hospitalization, she was also diagnosed with left-sided pneumonia likely gram-negative duong. This strain of ESBL E. coli bacterial species was found to be sensitive to meropenem. The patient was also diagnosed with acute renal failure on admission. On admission, the patient's BUN and creatinine was 55 and 1.8 respectively. On the day of discharge, the patient's BUN and creatinine was 43 and 1.22 respectively. The decision was made to transfer the patient to a local long-term acute care facility, namely [facility] where she could receive intravenous antibiotics for her ESBL E. coli urinary tract infection, as well as her left-sided gram-negative duong pneumonia. The patient's brief hospitalization was unremarkable. The patient's condition on transfer was stable with an overall fair prognosis. DISCHARGE MEDICATIONS 1. Meropenem 500 mg intravenous every 8 hours. 2. Regular insulin sliding scale. 3. Isosorbide mononitrate 30 mg b.i.d. 4. Fenofibrate 72.5 mg a day. 5. Allopurinol 300 mg daily. 6. Famotidine 20 mg intravenously every 12 hours. 7. Nifedipine XL 30 mg daily. 8. Carvedilol 25 mg b.i.d. 9. Aspirin 81 mg daily. 10. Acetaminophen 325 mg 1 every 6 hours p.r.n. pain or fever. 11. Tramadol 50 mg p.o. q.6 h. p.r.n. pain. 12. Ondansetron 4 mg intravenous every 4 hours p.r.n. nausea and vomiting. FOLLOWUP INSTRUCTIONS: As previously stated. The patient will transfer to a local long-term acute care facility, namely [facility] where she will be under the care of her attending, namely myself, Dr. Orestes Knowles. ORESTES KNOWLES MD Job#: [id number] RI
== END 2017-11-02 19:49 | DRG 871 ==
LOC: ER 18:10 → ERHOLD 21:30 → IMCU 23:04 → OBSVTOIN 11-01 17:12
PROVIDERS: ADMIT Internal Medicine; ATTEND Internal Medicine
PROC: 02HV33Z Insertion of Infusion Device into Superior Vena Cava, Percutaneous Approach (ICD-10-PCS; principal; 2017-11-02)
DX: A41.9 Sepsis, unspecified organism (principal); I50.33 Acute on chronic diastolic (congestive) heart failure; J15.6 Pneumonia due to other Gram-negative bacteria; N17.9 Acute kidney failure, unspecified; I13.0 Hypertensive heart and chronic kidney disease with heart failure and stage 1 through stage 4 chronic kidney disease, or unspecified chronic kidney disease; E11.42 Type 2 diabetes mellitus with diabetic polyneuropathy; E11.22 Type 2 diabetes mellitus with diabetic chronic kidney disease; N39.0 Urinary tract infection, site not specified; B96.20 Unspecified Escherichia coli [E. coli] as the cause of diseases classified elsewhere; Z16.12 Extended spectrum beta lactamase (ESBL) resistance; N18.3 Chronic kidney disease, stage 3 (moderate); E11.649 Type 2 diabetes mellitus with hypoglycemia without coma; J44.9 Chronic obstructive pulmonary disease, unspecified; E03.9 Hypothyroidism, unspecified; R53.81 Other malaise; K21.9 Gastro-esophageal reflux disease without esophagitis; G47.33 Obstructive sleep apnea (adult) (pediatric); E78.5 Hyperlipidemia, unspecified; Z79.4 Long term (current) use of insulin; Z79.82 Long term (current) use of aspirin; F32.9 Major depressive disorder, single episode, unspecified; M50.10 Cervical disc disorder with radiculopathy, unspecified cervical region
CPT/HCPCS: 36415; 36569; 71045; 80053; 80061; 81001; 82550; 82553; 82948; 83735; 83880; 84484; 85014; 85018; 85025; 85610; 85730; 87086; 87186; 93005; 93306; 99284; G0378; J0360; J1644; J2185; J7050; J7799

== ENCOUNTER → 2018-01-16 | Outpatient (CLI) | payer MEDICARE, OTHER ==
[2018-01-16 16:05] LABS: CREATININE, SERUM 1.54 mg/dL (0.57-1.11)
== END | disposition home or self-care (01) ==
LOC: DX 15:20
PROVIDERS: ATTEND Internal Medicine
DX: N39.0 Urinary tract infection, site not specified (principal); Z16.24 Resistance to multiple antibiotics; Z53.09 Procedure and treatment not carried out because of other contraindication
CPT/HCPCS: 36415; 82565; 84520

== ENCOUNTER → 2018-01-17 | Outpatient (CLI) | payer MEDICARE, OTHER ==
[~2018-01-17] MED LIST changes: +FENTANYL CITRATE/PF 100MCG/2 ML INJ ONE
--- NOTE | 2018-01-17 08:20 | Diagnostic Imaging Report ---
PROCEDURE:ABDOMINAL ULTRASOUND COMPARISON:CT abdomen and pelvis without contrast 01/09/2010. INDICATIONS:Abdomen Distention FINDINGS: Liver: 15.1 cm in length in the right midclavicular line. Normal hepatic parenchymal echogenicity. No focal mass. Main portal vein: 1.2 cm in caliber. Hepatopedal flow. Gallbladder: Surgically removed. Common Bile Duct: 0.7 cm in caliber. No echogenic filling defect. Right kidney: 10.1 cm in length. No solid or cystic mass, echogenic calculi, or hydronephrosis. Normal renal cortical echogenicity. Left kidney: 12 cm in length. No solid or cystic mass, echogenic calculi, or hydronephrosis. Normal renal cortical echogenicity. Spleen: 12 cm in length. Uniform parenchymal echotexture. Pancreas: The visualized portions of the pancreas are normal. Inferior vena cava: Limited evaluation due to overlying bowel gas. Aorta: Limited evaluation due to overlying bowel gas. Ascites: None. CONCLUSION: Status post cholecystectomy. Otherwise unremarkable abdominal ultrasound. No ascites in this patient with reported history of abdominal distention. Dictated by: Edi Pineda M.D. on 01/17/2018 at 8:23 Electronically approved by: Edi Pineda M.D. on 01/17/2018 at 8:23
--- NOTE | 2018-01-17 12:32 | Diagnostic Imaging Report ---
PROCEDURE:IR PICC LINE INSERTION INDICATIONS:C-ARM ASSIST FOR PICC PLACEMENT Fluoroscopy time: 3 minutes 34 seconds Air Kerma: 125.0 mGy DESCRIPTION OF PROCEDURE: A description of the procedure, including risks, complications and benefits of the procedure were explained to the patient, who provided informed consent. Preliminary sonographic evaluation of the left upper extremity confirmed patency of the brachial vein, evidenced by compressibility. The left upper arm was then prepped and draped in the standard sterile fashion. A tourniquet was applied to the upper arm just distal to the shoulder. One percent lidocaine was infiltrated into the skin and subcutaneous tissues for local anesthesia. Then under continuous sonographic guidance a 21 gauge needle was used to access the left brachial vein. A 0.018 inch wire was advanced centrally under fluoroscopic guidance after removal of the tourniquet. Intravascular length to the cavoatrial junction was measured at 45.5 cm. The needle was exchanged over the wire for a 5 Welsh peel-away sheath. A 5 Welsh dual-lumen PICC was cut to length and advanced through the peel-away sheath. A 0.018 inch wire was advanced through the PICC and into the inferior vena cava to direct the PICC inferiorly. After removal of the wire, the PICC was noted to have retracted to the region of the confluence of the superior vena cava and azygos vein, secondary to upper extremity and thoracic venous tortuosity. Therefore, the wire was reintroduced through the catheter and advanced into the inferior vena cava. A second PICC was cut to length of 48.5 cm. The existing PICC was removed over the wire and the longer PICC was advanced over the wire, which was then removed. The catheter tip was positioned in the upper right atrium with a permanent fluoroscopic image stored. Each lumen showed adequate bidirectional flow and was flushed with sterile saline. The catheter was secured to the skin with a StatLock device and a sterile dressing was applied. Patient tolerated the procedure well without immediate complication. Findings: Patent left brachial vein.. CONCLUSION:Successful placement of a left upper extremity PICC without immediate complication. The PICC is cleared for immediate use. Dictated by: Edi Pineda M.D. on 01/17/2018 at 12:35 Electronically approved by: Edi Pineda M.D. on 01/17/2018 at 12:35
== END | disposition home or self-care (01) ==
LOC: US 07:34
DX: R14.0 Abdominal distension (gaseous) (principal); I11.0 Hypertensive heart disease with heart failure; I50.32 Chronic diastolic (congestive) heart failure; E03.9 Hypothyroidism, unspecified; E78.5 Hyperlipidemia, unspecified
CPT/HCPCS: 36415; 36569; 76700; 82948

== ENCOUNTER → 2018-03-17 | Outpatient (CLI) | payer MEDICARE, OTHER ==
[~2018-03-17] MED LIST changes: -FENTANYL CITRATE/PF 100MCG/2 ML INJ ONE
[2018-03-17 15:25] LABS: CREATININE, SERUM 1.69 mg/dL (0.57-1.11)
--- NOTE | 2018-03-17 17:40 | Diagnostic Imaging Report ---
EXAMINATION: CHEST XRAY LINE PLACEMENT COMPARISON: Chest x-ray 11/02/2017 INDICATION: PICC line placement, UTI/sepsis DISCUSSION: Frontal view of the chest obtained at 1713 hours. HEART AND MEDIASTINUM: Stable mild cardiomegaly LINES: Right PICC line terminates at the cavoatrial junction. No pneumothorax. LUNGS: Lung volumes are low. The pulmonary vasculature is mildly prominent but stable. No jayme consolidation. PLEURA: No pleural effusion or pneumothorax. BONES AND SOFT TISSUES: No focal osseous lesion. Stable degenerative changes. The soft tissues are normal. IMPRESSION: Right PICC line as described above. No pneumothorax. Mild prominence of the pulmonary vasculature is stable. Signed by: Dr. Hillary Mendoza MD on 03/17/2018 5:36 PM
== END ==
LOC: DX 14:31
PROVIDERS: ATTEND Internal Medicine
DX: A41.51 Sepsis due to Escherichia coli [E. coli] (principal); N39.0 Urinary tract infection, site not specified
CPT/HCPCS: 36415; 36569; 71045; 82565; 84520

== ENCOUNTER 2018-04-23 14:06 | Emergency (ER) | payer MEDICARE, OTHER ==
[~2018-04-23] VITALS: Ht 160 cm; Wt 73.9 kg
[2018-04-23] MEDS ORDERED: ALBUTEROL SULF 0.083% NEB SOLN 3 ML NEB NEB STA (14:44)
--- NOTE | 2018-04-23 15:44 | Diagnostic Imaging Report ---
EXAMINATION: CXR 2 VIEW - HOPD INDICATION: Cough for 2 or 3 days \[id number] \S\[id number] COMPARISON: Chest radiograph 03/17/2018 FINDINGS: PA and lateral views TUBES and LINES: Interval removal of the right PICC. LUNGS: Lungs are well inflated. Bilateral hilar peribronchial wall thickening. No new lobar consolidations. Bilateral interstitial edema. PLEURA: No pleural effusion or pneumothorax. HEART AND MEDIASTINUM: Mild enlargement of the cardiac silhouette is stable. Atherosclerotic calcifications of the aortic arch. BONES AND SOFT TISSUES: No acute osseous lesion. Soft tissues are unremarkable. UPPER ABDOMEN: No free air under the diaphragm. IMPRESSION: Bilateral interstitial edema with worsening peribronchial wall thickening may be due to worsening edema or superimposed atypical infection. Signed by: Dr. Cleopatra Bhatia M.D. on 04/23/2018 3:39 PM
[2018-04-23] MEDS ORDERED: AZITHROMYCIN 500MG/NS 250 ML 250 ML IV ONE (16:00)
[2018-04-23] MEDS ORDERED: MEROPENEM 1GM 100 ML IV ONE (16:00)
[2018-04-23] MEDS ORDERED: ACETAMINOPHEN 325 MG TAB PO ONE (16:15)
[2018-04-23 16:30] VITALS: BP 109/53
== END 2018-04-23 17:56 | disposition home or self-care (01) ==
LOC: FSED 14:06
DX: R05 Cough (principal); J18.9 Pneumonia, unspecified organism; N30.90 Cystitis, unspecified without hematuria; N28.9 Disorder of kidney and ureter, unspecified; I10 Essential (primary) hypertension; E11.9 Type 2 diabetes mellitus without complications; J44.9 Chronic obstructive pulmonary disease, unspecified
CPT/HCPCS: 71046; 87086; 87186; 93005; 94760; 99284; J0456; J2185

== ENCOUNTER 2018-06-15 18:36 | Observation (INO) | payer MEDICARE, OTHER ==
[~2018-06-15] VITALS: Ht 160 cm; Wt 74.9 kg
[2018-06-15] MEDS: FAMOTIDINE 20 MG TAB PO SCH (10:30)
[2018-06-15] MEDS ORDERED: NITROGLYCERIN 0.4 MG SUBL SL ONE (19:00)
--- NOTE | 2018-06-15 19:29 | Diagnostic Imaging Report ---
EXAMINATION: CXR 1 [facility] INDICATION: Shortness of breath. Chest pain COMPARISON: Chest radiograph 03/17/2018 FINDINGS: TUBES and LINES: None. LUNGS: Bilateral hilar peribronchial wall thickening. No lobar consolidations. Bilateral interstitial edema. PLEURA: No pleural effusion or pneumothorax. HEART AND MEDIASTINUM: Mild enlargement of the cardiac silhouette is stable. Atherosclerotic calcifications of the aortic arch. BONES AND SOFT TISSUES: No acute osseous lesion. Soft tissues are unremarkable. UPPER ABDOMEN: No free air under the diaphragm. IMPRESSION: Bilateral interstitial edema with peribronchial wall thickening may be due to edema or superimposed atypical infection. Signed by: Dr. Sandeep Hunter M.D. on 06/15/2018 7:26 PM
[2018-06-15] MEDS ORDERED: NITROGLYCERIN 2% OINT 1 GM PKT TOP ONE (19:30)
[2018-06-15] MEDS ORDERED: FUROSEMIDE INJ 10 MG/ML 4 ML VIAL IV ONE (19:45)
[2018-06-15 20:00] VITALS: BP 128/61
[2018-06-15] MEDS ORDERED: SODIUM CHLORIDE FLUSH 10 ML SYR INJ PRN (20:30)
[2018-06-15] MEDS ORDERED: ONDANSETRON HCL INJ 2 MG/ML VIAL IV PRN (20:30)
[2018-06-15] MEDS ORDERED: MORPHINE SULFATE 2 MG/ML SYR IV PRN (20:30)
[2018-06-15] MEDS ORDERED: NITROGLYCERIN 0.4 MG SUBL SL PRN (20:30)
[2018-06-15] MEDS ORDERED: DEXTROSE 50% SYRINGE 50 ML IV PRN (21:00)
[2018-06-15] MEDS: INSULIN REGULAR, HUMAN 100 UNIT/1 ML 3ML VIAL SQ SCH (21:00)
[2018-06-15 23:25] VITALS: BP 128/61
[2018-06-16] VITALS (8 sets, daily range): BP systolic 108–178; BP diastolic 60–84
[2018-06-16 05:14] LABS: BASOPHILS % 0.4 % (0.0-1.0); EOSINOPHILS # (AUTO) 0.5 (0.0-0.4); EOSINOPHILS % 7.5 % (0.0-6.0); HEMOGLOBIN 11.4 g/dL (12.0-16.0); LYMPHOCYTES # (AUTO) 2.1 (1.0-3.2); LYMPHOCYTES % 30.2 % (18.0-39.1); MEAN CORPUSCULAR HEMOGLOBIN 26.5 pg (28-32); MEAN CORPUSCULAR HGB CONC 32.6 g/dL (31-35); MEAN CORPUSCULAR VOLUME 81.4 fL (81-99); MONOCYTES # (AUTO) 0.5 (0.2-0.8); MONOCYTES % 7.1 % (4.4-11.3); NEUTROPHILS # (AUTO) 3.8 (2.1-6.9); NEUTROPHILS % 54.7 % (38.7-80.0); PLATELET COUNT 151 x10e3/uL (140-360); RED CELL DISTRIBUTION WIDTH 15.6 % (11.7-14.4)
[2018-06-16] MEDS: NITROGLYCERIN 2% OINT 1 GM PKT TOP SCH ×3 (05:38→12:57)
[2018-06-16 05:46] LABS: CREATINE KINASE MB 1.8 ng/mL (0-5.0)
[2018-06-16 06:28] LABS: ANION GAP 14.5 mmol/L (8-16); CREATININE, SERUM 0.99 mg/dL (0.57-1.11); POTASSIUM 3.5 mmol/L (3.5-5.1)
[2018-06-16] MEDS ORDERED: FUROSEMIDE INJ 10 MG/ML 4 ML VIAL IV NR (07:30)
[2018-06-16] MEDS: INSULIN REGULAR, HUMAN 100 UNIT/1 ML 3ML VIAL SQ SCH ×2 (07:30→11:30)
[2018-06-16] MEDS ORDERED: POTASSIUM CHLORIDE 10MEQ EA PO NR ×2 (07:30→11:45)
--- NOTE | 2018-06-16 08:14 | History and Physical ---
CHIEF COMPLAINT: Chest discomfort. HISTORY OF PRESENT ILLNESS: This is 88-year-old white woman, who presented to [facility] emergency room with sudden onset of retrosternal chest pressure that radiates to her left shoulder and left upper extremity. This chest pressure was associated with shortness of breath, but no nausea or diaphoresis. The patient states the entire episode lasted approximately 30 minutes. Twelve-lead EKG done in the emergency room revealed poor R-wave progression in anterior leads, but otherwise no acute ischemic changes are appreciated. Patient's initial cardiac enzymes were normal. In the emergency room, patient was found to have BUN and creatinine of 48 and 0.99 respectively. Patient's potassium is 3.5. White blood cell count is 6800 with 54% segmented neutrophils. Hemoglobin is 11.4 g/dL. Chest x-ray performed in the emergency room revealed mild cardiomegaly with bilateral interstitial edema with peribronchial thickening, which radiologist felt could be due to either edema or superimposed typical infection. The patient was admitted for further evaluation and treatment. REVIEW OF SYSTEMS: GENERAL: Weight has been stable. No fever or chills. HEENT: No headaches. No visual changes. CARDIOVASCULAR/RESPIRATORY: Chest pain as per HPI. States that prior to chest pain, she was not experiencing any upper respiratory infection type symptoms. Patient states she did receive influenza vaccine this season. The patient, however, does have chronic cough. GI: No nausea, vomiting, diarrhea, or constipation. : Patient has history of recurrent urinary tract infections, but at this time is not complaining of any urinary tract infection type symptoms. NEUROMUSCULAR: Patient complained of severe pain in her feet secondary to diabetic peripheral neuropathy. She also has chronic back pain, moreover in the last 2 months. She has had left-sided neck pain. PAST MEDICAL HISTORY: 1. Type 2 diabetes mellitus with diabetic peripheral neuropathy. 2. Chronic bronchitis. 3. Chronic diastolic congestive heart failure. 4. Hypertensive heart disease. 5. Stage 2 chronic kidney disease. 6. Recurrent urinary tract infections. 7. Chronic nocturnal oxygen use. 8. Cervical disk disease with episodes of radiculitis. 9. Hypothyroidism. 10. Dyslipidemia. 11. GERD. SURGICAL HISTORY: 1. Laparoscopic cholecystectomy. 2. Abdominal hernia repair. 3. Left breast lumpectomy (benign). FAMILY HISTORY: Mother of colon cancer. Father had type 2 diabetes mellitus. ALLERGIES: 1. PENICILLIN. 2. LEVOTHYROXINE. 3. NITROFURANTOIN. 4. PROPOXYPHENE. 5. SULFAMETHOXAZOLE. SOCIAL HISTORY: This woman is , lives with her . No history of tobacco use. Patient states she does drink usually 1 alcohol drink daily. HOME MEDICATIONS: 1. Allopurinol 300 mg daily. 2. Alprazolam 0.25 mg once daily as needed for anxiety. 3. Amitriptyline 25 mg daily. 4. Aspirin 81 mg daily. 5. Carvedilol 12.5 mg b.i.d. 6. Vitamin D3 2000 units daily. 7. Fenofibrate 145 mg daily. 8. Hemocyte 325 mg b.i.d. 9. Furosemide 40 mg daily. 10. Gabapentin 300 mg nightly. 11. NovoLog insulin 10 units 3 times daily with meals. 12. Levothyroxine 50 mcg daily. 13. Nitroglycerin 0.4 mg 1 sublingual every 5 minutes p.r.n. chest pain. 14. Pantoprazole 40 mg daily. 15. Promethazine 25 mg t.i.d. p.r.n. nausea, vomiting. PHYSICAL EXAMINATION: GENERAL: She is awake, alert, and fully oriented, in no distress. Very pleasant and cooperative with exam. VITAL SIGNS: Height is 5 feet 3 inches. Weight is 167 pounds. BMI is 30. Blood pressure at this time is 133/60, pulse 52, respiratory rate is 18, oxygen saturation 96% on room air, temperature 96.4. INTEGUMENT: Skin is warm and dry. No pallor, jaundice, or diaphoresis. HEENT: Anicteric sclerae with moist mucous membranes. NECK: Supple. No evidence of jugular venous distention. CARDIOVASCULAR: Distant heart sounds. Regular rate and rhythm with an S3 gallop. LUNGS: Patient has faint crackles bilaterally. ABDOMEN: Benign. EXTREMITIES: No edema or deformity. NEUROLOGICAL: Intact. ASSESSMENT: 1. Unstable angina. 2. Sykdd-hh-lvjyyeh diastolic congestive heart failure with preserved ejection fraction. 3. Type 2 diabetes mellitus with diabetic peripheral neuropathy. 4. Chronic bronchitis. 5. Hypertensive heart disease. PLAN: 1. Rule out myocardial infarction. 2. Order 2D echocardiogram. 3. Will check a B-type natriuretic peptide level to assess for intravascular volume overload. 4. Consult cardiology. 5. Would administer intravenous furosemide. 6. Will provide potassium supplementations as patient will be receiving intravenous furosemide. I spent 75 minutes in the care of the patient. Job#: [id number]
[2018-06-16] MEDS: FAMOTIDINE 20 MG TAB PO SCH (08:30)
[2018-06-16] MEDS ORDERED: REGADENOSON 0.4 MG/5 ML SYR IV ONE (08:34)
[2018-06-16] MEDS ORDERED: ASPIRIN 81 MG ENTERIC COATED PO SCH (09:00)
--- NOTE | 2018-06-16 09:19 | Consultation ---
DATE OF CONSULTATION: June 15, 2018 CARDIOLOGY CONSULTATION REASON FOR CONSULTATION: Chest pain. HPI: This is a pleasant 88-year-old female that presented with chest pain. According to her, she was sitting down about to eat when she started having a sudden right chest pain that started from the right side of her chest and radiated to the left on a scale of 10/10. She stated the chest was intense and went through her left shoulder to the left arm and neck that she presented to the emergency room for evaluation. She was at a free standing ER. Due to the severity of the chest pain, she was sent over here for further evaluation. She denied any palpitations, any dizziness, any diaphoresis, any headache, nausea, or vomiting. She stated the chest pain was accompanied with shortness of breath. Troponin was negative. BNP was 185. EKG showed normal sinus rhythm with no S/T abnormalities. Chest x-ray showed bilateral interstitial edema with peribronchial wall thickening due to possible edema or superimposed infection. PAST MEDICAL HISTORY: Hypertension, hypothyroidism, diabetes, diastolic CHF, UTI, hyperlipidemia, diabetic neuropathy, GERD, COPD, GI bleed, depression, CKD, pneumonia, and ESBL in the urine. PAST SURGICAL HISTORY: Cholecystectomy, bladder surgery, left breast lumpectomy, and partial hysterectomy. FAMILY HISTORY: Noncontributory. SOCIAL HISTORY: No smoking. No drinking. She lives at home with the family. ALLERGIES: SHE HAS MULTIPLE ALLERGIES. SEE CHART. REVIEW OF SYSTEMS: Negative except those mentioned above. She is positive with chest pain. PHYSICAL EXAMINATION VITAL SIGNS: Temperature 97, heart rate 63, blood pressure 133/60, respirations 20, and oxygen saturation 96% on room air. GENERAL: She is awake, alert and oriented times 3. HEENT: Mucous membrane moist. NECK: Supple. LUNGS: Bilateral clear to auscultation. CARDIOVASCULAR: S1 and S2 present. ABDOMEN: Soft. NEUROLOGICAL: Intact. EXTREMITIES: With no edema. LABS: Sodium 141, potassium 3.5, chloride 102, BUN 48, creatinine 0.99, glucose 92. White blood cells 6.89, hemoglobin 11.4, hematocrit 35, and platelets 151,000. IMPRESSION 1. Chest pain. 2. Hypertension. 3. Diabetes. 4. Hypothyroidism. 5. History of diastolic congestive heart failure. ASSESSMENT AND PLAN 1. She had a recent echocardiogram in October 2017 that showed normal systolic function. EF 55% to 60%. 2. Due to the symptoms of her chest pain, will go ahead and get a Lexiscan Myoview to rule out any occlusion. 3. Will continue her home medications. Further cardiac workup pending clinical course. Thank you for this consultation. DICTATED BY ALLYN MEDINA NP Job#: [id number] RI
[2018-06-16] MEDS ORDERED: NIFEDIPINE ER30 M1 PO (12:11)
[2018-06-16] MEDS ORDERED: tresiba SQ (12:11)
[2018-06-16] MEDS ORDERED: METOLAZONE5 MG PO (12:11)
[2018-06-16] MEDS ORDERED: POTASSIUM CHLO10 ME1 PO (12:11)
[2018-06-16] MEDS ORDERED: SENNA LAX8.6 MG PO (12:11)
[2018-06-16] MEDS ORDERED: ALBUTEROL0.63 MG/3 INH (12:11)
[2018-06-16] MEDS ORDERED: ISOSORBIDE MONO30 MG PO (12:11)
[2018-06-16] MEDS ORDERED: TYLENOL325 MG PO (12:11)
[2018-06-16] MEDS ORDERED: ULORIC80 MG PO (12:11)
[2018-06-16 12:15] LABS: CLARITY,URINE HAZY (CLEAR); COLOR,URINE YELLOW (YELLOW)
[2018-06-16 12:16] LABS: BILIRUBIN,URINE NEGATIVE (NEGATIVE); KETONES,URINE NEGATIVE (NEGATIVE); LEUKOCYTE ESTERASE ,URINE 1+ (NEGATIVE); NITRITE,URINE POSITIVE (NEGATIVE); PROTEIN,URINE DIPSTICK TRACE (NEGATIVE); URINE UROBILINOGEN 0.2 mg/dL (0.2 - 1)
[2018-06-16 12:28] LABS: BACTERIA,URINE MANY /HPF; EPITHELIAL CELLS,URINE FEW /LPF; RBC,URINE 0-5 /HPF (0-5); WBC,URINE (MAN) >50 /HPF (0-5)
[2018-06-16] MEDS ORDERED: ALBUTEROL SULF 0.083% NEB SOLN 3 ML NEB INH PRN (13:45)
[2018-06-16] MEDS ORDERED: CARVEDILOL 12.5 MG TAB PO SCH (13:45)
[2018-06-16] MEDS ORDERED: ACETAMINOPHEN 325 MG TAB PO PRN (13:45)
[2018-06-16] MEDS ORDERED: CEFEPIME HCL 1 GM VIAL IV SCH (13:45)
[2018-06-16] MEDS ORDERED: FUROSEMIDE 40 MG TAB PO SCH (14:00)
[2018-06-16 14:57] LABS: CREATINE KINASE MB 1.9 ng/mL (0-5.0)
[2018-06-16] MEDS ORDERED: CIPRO500 MG PO (15:29)
[2018-06-16] MEDS ORDERED: AMITRIPTYLINE HCL 25 MG TAB PO SCH (21:00)
[2018-06-16] MEDS ORDERED: GABAPENTIN 300 MG CAP PO SCH (21:00)
[2018-06-17] MEDS ORDERED: LEVOTHYROXINE SODIUM 50 MCG TAB PO SCH (06:00)
[2018-06-17] MEDS ORDERED: PANTOPRAZOLE SOD 40 MG TABEC PO SCH (07:30)
[2018-06-17] MEDS ORDERED: POTASSIUM CHLORIDE 10MEQ EA PO SCH (09:00)
[2018-06-17] MEDS ORDERED: NIFEDIPINE CR 30 MG TAB PO SCH (09:00)
[2018-06-17] MEDS ORDERED: ISOSORBIDE MONONITRATE 30 MG TAB CR PO SCH (09:00)
[2018-06-17] MEDS ORDERED: SENNOSIDES 8.6 MG TAB PO SCH (09:00)
[2018-06-17] MEDS ORDERED: FEBUXOSTAT 80 MG TAB PO SCH (09:00)
--- NOTE | 2018-06-19 08:53 | Discharge Summary ---
ADMIT DIAGNOSES: 1. Unstable angina. 2. Frnxo-eo-vdptlah diastolic congestive heart failure with preserved ejection fraction. 3. Type 2 diabetes mellitus with diabetic peripheral neuropathy. 4. Chronic bronchitis. 5. Hypertensive heart disease. DISCHARGE DIAGNOSES: 1. Anginal chest pain, resolved. 2. Normal chemical nuclear stress test. 3. Extended-spectrum beta-lactamase Escherichia coli urinary tract infection. 4. Chronic diastolic congestive heart failure. 5. Hypertensive heart disease. 6. Type 2 diabetes mellitus with diabetic peripheral neuropathy. HOSPITAL COURSE: This is an 88-year-old white woman who was initially admitted to [facility] with a diagnosis of anginal chest pain. Patient was seen by her soaping department supervisor, namely Dr. Gallo Archuleta. During this hospitalization, patient had serial cardiac enzymes as well as electrocardiograms performed that did not reveal any evidence of acute myocardial ischemia or infarction. The patient underwent a nuclear chemical stress test during this hospitalization, which was normal according to soaping department supervisor. The patient, however, was found to have ESBL E. coli urinary tract infection confirmed by urine cultures. Urine culture revealed ESBL E. coli bacterial species greater 100,000 colony-forming units per mL unit. This strain of ESBL E. coli bacterial species was found to be resistant to many antibiotics, but it was found to be sensitive to Carbapenem antibiotics such as ertapenem, imipenem, and meropenem. The patient was discharged home in stable condition. The final urine culture results were not available on this day of discharge, thus the patient was sent home on a 14-day course of oral ciprofloxacin 250 mg twice a day. Patient's condition on discharge was stable. DISCHARGE MEDICATIONS: 1. Oral ciprofloxacin will be discontinued. 2. Ertapenem 1 g intravenous daily for 21 days. 3. Allopurinol 300 mg daily. 4. Alprazolam 0.25 mg once daily as needed for anxiety. 5. Amitriptyline 25 mg daily. 6. Aspirin 81 mg daily. 7. Carvedilol 12.5 mg b.i.d. 8. Vitamin D3 2000 units daily. 9. Fenofibrate 145 mg daily. 10. Hemocyte 325 mg b.i.d. 11. Furosemide 40 mg daily. 12. Gabapentin 300 mg nightly. 13. NovoLog insulin 10 units subcutaneous t.i.d. with meals. 14. Levothyroxine 50 mcg daily. 15. Nitroglycerin 0.4 mg 1 sublingual every 5 minutes p.r.n. chest pain. 16. Pantoprazole 40 mg daily. 17. Promethazine 25 mg t.i.d. p.r.n. nausea, vomiting. FOLLOWUP INSTRUCTIONS: As previously stated, patient will be sent home on outpatient intravenous antibiotic therapy. Her oral ciprofloxacin regimen will be discontinued. As an outpatient, patient will have a peripherally inserted central catheter placed, and ertapenem 1 g intravenous daily for 21 days will be ordered. ORESTES KNOWLES MD Job#: [id number]
--- NOTE | 2018-06-21 12:40 | Cardiology Report ---
DATE OF STUDY: June 16, 2018 LEXISCAN NUCLEAR STRESS TEST INDICATIONS: Chest pain. DESCRIPTION OF PROCEDURE: After informed consent, the patient was brought to the stress lab. She was given 11 mCi of technetium 99 Myoview, and myocardial perfusion SPECT images were obtained in the horizontal long and short axis and vertical long axis. Subsequently, the patient was given 0.4 mg Lexiscan over 10 seconds. Patient was given 33 mCi of technetium 99 Myoview, and myocardial perfusion SPECT images were obtained in horizontal long axis and short axis and vertical long axis views. Gated images were also obtained. Patient tolerated the procedure without any complications. REPORT: Baseline EKG shows sinus rhythm at 72 beats per minute, normal axis, normal intervals, nonspecific ST-T changes. PARAMETERS 1. Resting heart rate is 72 beats per minute. 2. Maximum heart rate is 82 beats per minute. 3. Resting blood pressure 151/64 mmHg. 4. Maximum blood pressure 152/67 mmHg. REASON FOR TERMINATION: Endpoint attained. INTERPRETATION 1. Negative for chest pain. 2. Negative for arrhythmias. 3. Blood pressure response consistent with Lexiscan. 4. No significant ST-T changes seen during Lexiscan infusion compared to baseline. 5. Analysis of SPECT images reveals uniform radioisotope uptake in all segments of the myocardium without any significant perfusion defects. CONCLUSIONS 1. No evidence significant ischemia or infarction on this study. 2. No wall motion abnormalities. 3. Overall ejection fraction 71%. NOTE: This report was placed in another physician's box and then transferred to my box today. Job#: [id number]
== END 2018-06-16 16:54 | disposition home or self-care (01) ==
LOC: FSED 18:36 → ERHOLD 19:03 → IMCU 20:50
PROVIDERS: ADMIT Internal Medicine; ATTEND Internal Medicine
DX: I25.110 Atherosclerotic heart disease of native coronary artery with unstable angina pectoris (principal); R07.9 Chest pain, unspecified; N39.0 Urinary tract infection, site not specified; E11.22 Type 2 diabetes mellitus with diabetic chronic kidney disease; I13.0 Hypertensive heart and chronic kidney disease with heart failure and stage 1 through stage 4 chronic kidney disease, or unspecified chronic kidney disease; I50.32 Chronic diastolic (congestive) heart failure; N18.3 Chronic kidney disease, stage 3 (moderate); E78.5 Hyperlipidemia, unspecified; J44.9 Chronic obstructive pulmonary disease, unspecified; E11.42 Type 2 diabetes mellitus with diabetic polyneuropathy; M50.10 Cervical disc disorder with radiculopathy, unspecified cervical region; E03.9 Hypothyroidism, unspecified; K21.9 Gastro-esophageal reflux disease without esophagitis; Z80.0 Family history of malignant neoplasm of digestive organs; Z83.3 Family history of diabetes mellitus; Z88.0 Allergy status to penicillin; Z88.8 Allergy status to other drugs, medicaments and biological substances; Z79.4 Long term (current) use of insulin; B96.20 Unspecified Escherichia coli [E. coli] as the cause of diseases classified elsewhere; Z16.12 Extended spectrum beta lactamase (ESBL) resistance; Z99.81 Dependence on supplemental oxygen
CPT/HCPCS: 36415 ×2; 71045; 78452; 80048; 80053; 81001; 82550; 82553 ×2; 82948 ×2; 83880 ×2; 84484 ×2; 85025; 85610; 87086; 87186; 93005; 93017; 99284; A9502; G0378 ×2; J0692; J1817; J2785

== ENCOUNTER → 2019-03-01 | Outpatient (CLI) | payer MEDICARE, OTHER ==
[~2019-03-01] MED LIST changes: +ALBUTEROL0.63 MG/3 INH; +CLARITIN D PO; +D MANNOSE PO; +ISOSORBIDE MONO30 MG PO; +LASIX40 MG PO; +MAGNESIUM OXID400 MG PO; +METOLAZONE5 MG PO; +NIFEDIPINE ER30 M1 PO; +NIFEDIPINE20 MG PO; +POTASSIUM CHLO10 ME1 PO; +PRILOSEC10 M1 PO; +PROCARDIA XL30 MG PO; +RANITIDINE HCL300 M1 PO; +SENNA LAX8.6 MG PO; +SENNA-DOCUSATE1 EACH PO; +TRESIBA SC; +TYLENOL325 MG PO; +ULORIC80 MG PO; +tresiba SC; +tresiba SQ
--- NOTE | 2019-03-01 14:56 | Diagnostic Imaging Report ---
EXAM: Renal/Pelvic Ultrasound INDICATION: ^URINARY TRACT INFECTION COMPARISON: None TECHNIQUE: Transverse and longitudinal images of the kidneys and bladder were obtained. FINDINGS: Right Kidney: Length: 10.4 cm Appearance: Normal echogenicity. Collecting system: No hydronephrosis Stones: None Cyst/Mass: None Left Kidney: Length: 11.4 cm Appearance: Normal echogenicity. Collecting system: No hydronephrosis Stones: None Cyst/Mass: None Bladder: No stones or mass. Prevoid volume estimate of 48.1 cc. Postvoid images show complete emptying with no residual. Ureteral jets not seen. IMPRESSION: No renal calculi or hydronephrosis. Signed by: Jian Burkett MD on 03/01/2019 2:53 PM
--- NOTE | 2019-03-01 14:57 | Diagnostic Imaging Report ---
Exam: KUB - 2 views Clinical History: Renal calculi Comparison: Renal ultrasound of the same day. Findings: No radiographically apparent renal calculi. Nonobstructive bowel gas pattern. No free air. Status post cholecystectomy. Degenerative changes of the visualized spine. Impression: No radiographically apparent renal calculi. Signed by: Jian Burkett MD on 03/01/2019 2:54 PM
== END ==
LOC: US 13:48
PROVIDERS: ATTEND Urology
DX: Z87.442 Personal history of urinary calculi (principal); N39.0 Urinary tract infection, site not specified
CPT/HCPCS: 74018; 76770; 76857

== ENCOUNTER → 2019-04-13 | Outpatient (CLI) | payer MEDICARE, OTHER ==
[~2019-04-13] MED LIST changes: +TYLENOL325 M2 PO
[2019-04-13 17:11] LABS: BASOPHILS % 0.5 % (0.0-1.0); EOSINOPHILS # (AUTO) 0.5 (0.0-0.4); EOSINOPHILS % 5.9 % (0.0-6.0); HEMATOCRIT 39.1 % (34.2-44.1); HEMOGLOBIN 12.1 g/dL (12.0-16.0); LYMPHOCYTES # (AUTO) 2.2 (1.0-3.2); MEAN CORPUSCULAR HEMOGLOBIN 25.2 pg (28-32); MEAN CORPUSCULAR HGB CONC 30.9 g/dL (31-35); MEAN CORPUSCULAR VOLUME 81.3 fL (81-99); MONOCYTES # (AUTO) 0.4 (0.2-0.8); MONOCYTES % 5.4 % (4.4-11.3); NEUTROPHILS % 61.1 % (38.7-80.0); PLATELET COUNT 166 x10e3/uL (140-360); RED BLOOD COUNT 4.81 x10e6/uL (3.6-5.1); RED CELL DISTRIBUTION WIDTH 17.6 % (11.7-14.4)
--- NOTE | 2019-04-13 17:41 | Diagnostic Imaging Report ---
Exam: PA and lateral chest radiograph Clinical history: Preoperative clearance, shortness of breath Comparison: June 19, 2018 Findings: There is persistent cardiomegaly. Increased bibasilar pulmonary opacities are noted which may represent atelectasis versus early consolidation. There is no evidence of pleural effusion or pneumothorax. The regional osseous structures are unchanged. Signed by: Dr. Martin Sorto MD on 04/13/2019 5:38 PM
== END ==
LOC: RAD 05:00 → EDSTATUS 04-19 07:00
PROVIDERS: ATTEND Internal Medicine Gastroenterology
DX: Z01.818 Encounter for other preprocedural examination (principal); R13.10 Dysphagia, unspecified; R11.10 Vomiting, unspecified; Z53.8 Procedure and treatment not carried out for other reasons
CPT/HCPCS: 36415; 71046; 85025; 93005

== ENCOUNTER 2019-04-17 22:18 | Inpatient (IN) | payer MEDICARE, OTHER ==
[~2019-04-17] VITALS: Ht 160 cm; Wt 74.6 kg
[~2019-04-17 22:18] MED LIST changes: -LASIX40 MG PO; -PROCARDIA XL30 MG PO; -SENNA-DOCUSATE1 EACH PO; -TYLENOL325 M2 PO; -tresiba SC
--- OUTSIDE RECORDS SUMMARY | 2019-04-17 23:03 | XMS REPORT | Continuity of Care Document ---
Author Author [employer] Organization [employer] Address Unknown Phone Unavailable Care Team Providers Care Yarn Winder Name Role Phone [employer] Unavailable Unavailable Problems Problem Status Onset Date Classification Date Reported Comments Source Unspecified abdominal pain 08/18/2017 11/18/2017 [facility] [place] R10.31 - RIGHT LOWER QUADRANT PAIN Active 08/12/2017 [facility] [place] R51 - HEADACHE Active 10/20/2015 [facility] 496 - CHR AIRWAY OBST Active 09/27/2011 [facility] [place] Diaphragmatic hernia without obstruction or gangrene 11/18/2017 [facility] [place] NECK PAIN Active [facility] [place] Medications No Data Provided for This Section Allergies, Adverse Reactions, Alerts No Known Medication Allergies Immunizations No Data Provided for This Section Results No Data Provided for This Section Pathology Reports No Data Provided for This Section Diagnostic Reports Report Value Date Source Abdomen/Pelvis wo IV contrast CT Exam: CT scan of the abdomen and pelvis without contrast. Reason for Exam: - R10.9 Unspecified abdominal pain Comparison Exam: CT scan09/01/2007 Technique: Multiple axial images were obtained of the abdomen and pelvis. 5 mm slices were acquired without injection of intravenous contrast. Oral contrast was given. Reformatted sagittal and coronal images were obtained for additional diagnostic information. Total exam EXY=855 mGy-cm. This exam was performed according to our departmental dose-optimization program, which includes automated exposure control, adjustment of the MA and/or KV according to patient size and/or use of iterative reconstruction technique. Discussion: Visualized portions of the lung parenchyma are unremarkable. Moderate-sized fat- containing hiatal hernia. Note that this exam is suboptimal for evaluation of the abdominal and pelvic viscera secondary to lack of intravenous contrast. The patient is status post cholecystectomy. No biliary duct dilation. Liver is unremarkable for technique. Stomach is unremarkable. Pancreas, adrenal glands, and spleen are within normal limits. Kidneys are unremarkable. No hydronephrosis or hydroureter. No dilated loops of bowel. The appendix is normal. Scattered diverticuli seen within the large bowel, without evidence to suggest acute diverticulitis. Uterus is not identified. Correlate with surgical history. Bladder is unremarkable. No appreciable lymphadenopathy. No acute bony abnormality is appreciated. No suspicious osteoblastic or osteolytic lesions. No evidence seen for abdominal aortic aneurysm. Moderate amount of calcified plaque seen within the abdominal aorta and iliac arteries. Impression: 1. No acute abnormalities seen within the abdomen or pelvis. Moderate-sized fat- containing hiatal hernia. 08/12/2017 [facility] Spine cervical series DX EXAMINATION: Cervical spine 5 views DATE: 10/20/2015 INDICATION: Headache TECHNIQUE: AP, lateral, open mouth and oblique radiographs were obtained of the cervical spine. FINDINGS: 7 cervical vertebral bodies are identified in normal height and density. There is minimal retrolisthesis of C3 over C4 and grade 1 anterolisthesis of C4 over C5. There is intervertebral disc height loss. Normal interspinous distances. Facet joints are normal. Normal alignment of the atlantoaxial articulation. No fracture or subluxation. No prevertebral soft tissue mass. IMPRESSION: Spondylolisthesis throughout the cervical spine with no significant neuroforaminal stenosis. 10/20/2015 [facility] Hip min 2 views RIGHT HIP SERIES CLINICAL HISTORY: Hip pain. 719.45 COMPARISON IMAGING: None. FINDINGS: Two views were submitted for evaluation. Moderate osteoarthritis is present, including loss of joint space and marginal osteophytes. No fracture, dislocation, or radiopaque foreign body is seen. Soft tissues are unremarkable. IMPRESSION: Moderate osteoarthritis of the right hip. 08/29/2013 BAKARI Mcknighta Consultation Notes No Data Provided for This Section Discharge Summaries No Data Provided for This Section History and Physicals No Data Provided for This Section Vital Signs No Data Provided for This Section Encounters Location Location Details Encounter Type Encounter Number Reason For Visit Attending Provider ADM Date DC Date Status Source OD [id number] 496 - CHR AIRWAY OBST REJI MALDONADO 09/27/2011 Active [facility] [place] [facility] [id number] Reji Maldonado 10/20/2015 10/21/[facility] [place] [facility] Therapy Patients [id number] Reji Maldonado 10/29/2015 11/28/2015 [facility] [id number] Reji Maldonado 12/01/2015 12/31/2015 [facility] [place] [facility] [id number] Reji Maldonado 08/12/2017 08/13/2017 [facility] [place] Procedures No Data Provided for This Section Assessment and Plan No Data Provided for This Section Plan of Care No Data Provided for This Section Social History Social History Date Source No data available for this section 08/13/2017 [facility] [place] No data available for this section 12/31/2015 [facility] [place] No data available for this section 10/21/2015 [facility] [place] Family History No Data Provided for This Section Advance Directives No Data Provided for This Section Functional Status No Data Provided for This Section
[2019-04-17] MEDS ORDERED: ALBUTEROL SULF 0.083% NEB SOLN 3 ML NEB NEB STA (23:18)
[2019-04-17 23:28] LABS: BASOPHILS % 0.3 % (0.0-1.0); EOSINOPHILS # (AUTO) 0.4 (0.0-0.4); EOSINOPHILS % 3.2 % (0.0-6.0); HEMATOCRIT 34.7 % (34.2-44.1); HEMOGLOBIN 10.8 g/dL (12.0-16.0); LYMPHOCYTES # (AUTO) 1.7 (1.0-3.2); LYMPHOCYTES % 15.8 % (18.0-39.1); MEAN CORPUSCULAR HEMOGLOBIN 24.8 pg (28-32); MEAN CORPUSCULAR HGB CONC 31.1 g/dL (31-35); MEAN CORPUSCULAR VOLUME 79.8 fL (81-99); MONOCYTES # (AUTO) 0.6 (0.2-0.8); MONOCYTES % 5.3 % (4.4-11.3); NEUTROPHILS # (AUTO) 8.2 (2.1-6.9); NEUTROPHILS % 75.2 % (38.7-80.0); PLATELET COUNT 162 x10e3/uL (140-360); RED BLOOD COUNT 4.35 x10e6/uL (3.6-5.1); RED CELL DISTRIBUTION WIDTH 17.4 % (11.7-14.4)
[2019-04-17] MEDS ORDERED: IPRATROPIUM BROMIDE 0.02% 2.5 ML NEB NEB ONE (23:30)
[2019-04-17 23:38] LABS: INR 0.97; PROTHROMBIN TIME 13.4 seconds (11.9-14.5)
[2019-04-17 23:39] LABS: PARTIAL THROMBOPLASTIN TIME 37.8 seconds (23.8-35.5)
[2019-04-18] VITALS (9 sets, daily range): BP systolic 140–178; BP diastolic 60–80
[2019-04-18 00:02] LABS: ALBUMIN 3.1 g/dL (3.5-5.0); ALBUMIN/GLOBULIN RATIO 0.7 (0.8-2.0); ANION GAP 14.5 mmol/L (8-16); CALCIUM 9.7 mg/dL (8.4-10.2); CREATININE, SERUM 1.99 mg/dL (0.57-1.11); MAGNESIUM 2.2 MG/DL (1.3-2.1); POTASSIUM 4.5 mmol/L (3.5-5.1)
[2019-04-18 00:08] LABS: CREATINE KINASE MB 1.1 ng/mL (0-5.0)
--- NOTE | 2019-04-18 00:10 | Diagnostic Imaging Report ---
Examination: Single AP view of the chest. COMPARISON: Chest 2 views 04/13/2019 INDICATION: Shortness of breath IMPRESSION: 1. Lines and Tubes: None 2. Lungs are well-inflated. Bilateral patchy predominantly interstitial opacities extending from the chano likely reflecting interstitial pulmonary edema. Partial obscuration of the left hemidiaphragm suggesting a small left pleural effusion and likely associated left lower lobe atelectasis.. 3. Enlarged cardiac silhouette, stable . moderate central pulmonary venous congestion 4. No acute bony abnormalities. Signed by: Dr. Se Barber M.D. on 04/18/2019 12:06 AM
[2019-04-18 00:32] LABS: BILIRUBIN,URINE NEGATIVE (NEGATIVE); CLARITY,URINE SL CLOUDY (CLEAR); COLOR,URINE YELLOW (YELLOW); KETONES,URINE NEGATIVE (NEGATIVE); LEUKOCYTE ESTERASE ,URINE NEGATIVE (NEGATIVE); NITRITE,URINE POSITIVE (NEGATIVE); PROTEIN,URINE DIPSTICK NEGATIVE (NEGATIVE); URINE UROBILINOGEN 0.2 mg/dL (0.2 - 1)
[2019-04-18] MEDS ORDERED: LEVOTHYROXINE50 MCG PO (00:39)
[2019-04-18] MEDS ORDERED: MAGNESIUM OXID400 MG PO (00:39)
[2019-04-18] MEDS ORDERED: ASPIR 8181 MG PO (00:39)
[2019-04-18] MEDS ORDERED: RANITIDINE HCL300 M1 PO (00:40)
[2019-04-18] MEDS ORDERED: PROCARDIA XL30 MG PO (00:40)
[2019-04-18] MEDS ORDERED: CARVEDILOL25 MG PO (00:41)
[2019-04-18] MEDS ORDERED: GABAPENTIN300 MG PO (00:42)
[2019-04-18] MEDS ORDERED: LASIX40 MG PO (00:42)
[2019-04-18] MEDS ORDERED: SENNA-DOCUSATE1 EACH PO (00:43)
[2019-04-18] MEDS ORDERED: AMITRIPTYLINE H25 MG PO (00:44)
[2019-04-18] MEDS ORDERED: tresiba SC (00:45)
[2019-04-18 00:55] LABS: BACTERIA,URINE MANY /HPF; EPITHELIAL CELLS,URINE FEW /LPF; RBC,URINE 0-5 /HPF (0-5)
[2019-04-18] MEDS ORDERED: MEROPENEM 500MG 500 MG in SODIUM CHLORIDE 0.9% 50ML 50 ML IV SCH (01:00)
[2019-04-18] MEDS ORDERED: MEROPENEM 1GM 100 ML IV ONE (01:08)
[2019-04-18 01:32] LABS: ABG PCO2 54 mmHg (41-51); ABG PO2 70 mmHg (80-105)
[2019-04-18 01:33] LABS: ABG HCO3 33 mmol/L (23-28)
[2019-04-18] MEDS ORDERED: ONDANSETRON HCL INJ 2MG/ML 2ML 2 MG/ML VIAL IV PRN (01:45)
[2019-04-18] MEDS ORDERED: SODIUM CHLORIDE 0.9% 500ML 500 ML IV ONE (01:45)
--- OUTSIDE RECORDS SUMMARY | 2019-04-18 01:57 | XMS REPORT | Continuity of Care Document ---
Author Author [employer] Organization [employer] Address Unknown Phone Unavailable Care Team Providers Care Splunk Consultant Name Role Phone [employer] Unavailable Unavailable Problems Problem Status Onset Date Classification Date Reported Comments Source Unspecified abdominal pain 08/18/2017 11/18/2017 [facility] [place] R10.31 - RIGHT LOWER QUADRANT PAIN Active 08/12/2017 [facility] [place] R51 - HEADACHE Active 10/20/2015 [facility] 496 - CHR AIRWAY OBST Active 09/27/2011 [facility] [place] Diaphragmatic hernia without obstruction or gangrene 11/18/2017 [facility] [place] NECK PAIN Active [facility] [place] Medications No Data Provided for This Section [...] obtained for additional diagnostic information. Total exam DDH=663 mGy-cm. This exam was performed according to [...] Moderate-sized fat- containing hiatal hernia. 08/12/2017 [facility] [place] Spine cervical series DX EXAMINATION: Cervical spine [...] spine with no significant neuroforaminal stenosis. 10/20/2015 [facility] Hip min 2 views RIGHT HIP SERIES [...] ADM Date DC Date Status Source OD [id number] 496 - CHR AIRWAY OBST REJI MALDONADO 09/27/2011 Active [facility] [place] [facility] [place] [facility] [id number] Reji Maldonado 10/20/2015 10/21/2015 [facility] [place] OP Therapy Patients [id number] Reji Maldonado 10/29/2015 11/28/2015 [facility] [place] [facility] [place] [facility] Therapy Patients [id number] Reji Maldonado 12/01/2015 12/31/2015 [facility] [place] [facility] [place] [facility] [id number] Reji Maldonado 08/12/2017 08/13/2017 [facility] [place] Procedures No Data Provided for This Section Assessment and Plan No Data Provided for This Section Plan of Care No Data Provided for This Section Social History Social History Date Source No data available for this section 08/13/2017 [facility] [place] No data available for this section 12/31/2015 [facility] [place] No data available for this section 10/21/2015 [facility] [place] Family History No Data Provided for This Section Advance Directives No Data Provided for This Section Functional Status No Data Provided for This Section
[2019-04-18] MEDS ORDERED: INSULIN LISPRO 100 UNIT/1 ML 3ML VIAL SQ ONE ×2 (02:24→02:30)
[2019-04-18] MEDS ORDERED: SODIUM CHLORIDE 0.9% 1000ML 1,000 ML ONE (02:39)
[2019-04-18] MEDS: IPRATROPIUM BROMIDE 0.02% 2.5 ML NEB NEB SCH ×6 (03:50→23:00)
[2019-04-18] MEDS: ALBUTEROL SULF 0.083% NEB SOLN 3 ML NEB NEB SCH ×6 (03:50→23:00)
--- NOTE | 2019-04-18 04:12 | NUR ---
PT IS TRANSFERRED FROM ER AOX3 .NOTED WHEEZING ON AUSCULTATION LUNGS .SKIN WARM AND DRY TO TOUCH .BRUISES AT LEFT HAND .IV AT LEFT HAND 20G RUNNING NS AT 75CC/HR .ORIENTED THE PT TO THE ENVIRONMENT AND ASSESSMENT DONE .FAMILY AT THE BEDSIDE .CALL LIGHT WITH IN REACH .CONTINUE TO MONITOR
--- NOTE | 2019-04-18 07:00 | NUR ---
Pt received in bed. Pt is aox2 at this time. Denies any pain at this time. Breaths are even and unlabored on O2 3L/NC. Bed alarm on at this time.
--- NOTE | 2019-04-18 07:27 | NUR ---
BEDSIDE REPORT GIVEN TO THE ONCOMING NURSE
[2019-04-18 08:57] LABS: BASOPHILS % 0.3 % (0.0-1.0); EOSINOPHILS # (AUTO) 0.5 (0.0-0.4); EOSINOPHILS % 4.7 % (0.0-6.0); HEMATOCRIT 33.5 % (34.2-44.1); HEMOGLOBIN 10.2 g/dL (12.0-16.0); LYMPHOCYTES # (AUTO) 1.5 (1.0-3.2); LYMPHOCYTES % 13.9 % (18.0-39.1); MEAN CORPUSCULAR HEMOGLOBIN 24.6 pg (28-32); MEAN CORPUSCULAR HGB CONC 30.4 g/dL (31-35); MEAN CORPUSCULAR VOLUME 80.9 fL (81-99); MONOCYTES # (AUTO) 0.6 (0.2-0.8); MONOCYTES % 5.2 % (4.4-11.3); NEUTROPHILS % 75.8 % (38.7-80.0); PLATELET COUNT 153 x10e3/uL (140-360); RED BLOOD COUNT 4.14 x10e6/uL (3.6-5.1); RED CELL DISTRIBUTION WIDTH 17.5 % (11.7-14.4)
[2019-04-18 09:20] LABS: ALBUMIN 2.8 g/dL (3.5-5.0); ALBUMIN/GLOBULIN RATIO 0.7 (0.8-2.0); ANION GAP 12.1 mmol/L (8-16); CALCIUM 9.5 mg/dL (8.4-10.2); CREATININE, SERUM 1.43 mg/dL (0.57-1.11); POTASSIUM 4.1 mmol/L (3.5-5.1)
[2019-04-18 09:26] LABS: CREATINE KINASE MB 0.9 ng/mL (0-5.0)
[2019-04-18] MEDS: MEROPENEM 500MG/ NS 50ML 50 ML IV SCH ×2 (09:41→21:44)
[2019-04-18] MEDS ORDERED: DEXTROSE 50% SYRINGE 50 ML IV PRN (10:00)
--- NOTE | 2019-04-18 10:42 | NUR ---
SPOKE WITH SON PARVIN, HE STATES HE IS CONCERNED DUE TO HIS BROTHER WANTING HIS MOTHER TO GO TO [place] WHEN FAMILY AND PT WANT TO BE SEEN AT [facility]. SPOKE WITH PT WHOM IS ALERT AND ORIENTED AND STATES SHE WAS TO REMAIN HERE AND SEE HER PCP DR KNOWLES. SHE AND PARVIN BOTH CONFIRM SHE WAS JUST AT FAMILY [employer] MACHINE OPERATOR DRAWING UP WILL, ADVISED PARVIN TO CHECK WITH [employer] B[employer]ING MACHINE OPERATOR TO SEE IF ADVANCED DIRECTIVE WAS COMPLETED AT SAME TIME AND TO BRING IT TO THE HOSPITAL AND THERE WILL BE NO QUESTION ABOUT WHOM IS ABLE TO DO WHAT, THE PT WISHES WILL BE FOLLOWED. I DID EXPLAIN THE PROGRESSION OF DECISION IF PT IS UNABLE IS SPOUSE, ADULT CHILD, PARENT, THEN SIBLING, PARVIN STATES HE WILL FOLLOW UP AND LET ME KNOW, HE STATES HE THINKS DR KNOWLES WILL KEEP PT UNTIL TUESDAY AND THEN HIS WISH IS TO DISCHARGE BACK HOME WITH [facility], CONTACTED WHOM STATES NO OOH DNR.
--- NOTE | 2019-04-18 10:54 | NUR ---
Pt sleeping soundly and no family present. Associate Professor Of Literacy left a card describing availability of clinical pharmacy manager and instructions on how to contact a clinical pharmacy manager. MANUEL DELEON Associate Professor Of Literacy Spiritual Care Department O: [phone] Pager: [phone] ([phone] number calling from)
[2019-04-18] MEDS: INSULIN LISPRO 100 UNIT/1 ML 3ML VIAL SQ SCH ×3 (11:30→21:45)
[2019-04-18] MEDS ORDERED: ACETAMINOPHEN 325 MG TAB PO PRN (15:30)
[2019-04-18] MEDS: CARVEDILOL 12.5 MG TAB PO SCH (15:52)
[2019-04-18] MEDS: GABAPENTIN 300 MG CAP PO SCH ×2 (15:52→21:44)
[2019-04-18] MEDS: FAMOTIDINE 20 MG TAB PO SCH (15:52)
[2019-04-18] MEDS ORDERED: NON-FORMULARY MEDICATION (Carvedilol 25 MG) PO SCH (17:00)
[2019-04-18] MEDS: SENNA-S TABLET PO SCH (21:44)
--- NOTE | 2019-04-18 23:03 | History and Physical ---
CHIEF COMPLAINT: Confusion. HISTORY OF PRESENT ILLNESS: This is an 89-year-old white woman, who was brought to [facility] Emergency Room by family members because of worsening confusion over the last week. Family states over the last week, the patient has had unstable gait, more tremors, and confusion. She has also had some near falls. This woman unfortunately has a history of recurrent bouts of ESBL urinary tract infections. In the emergency room, the patient was found to have white blood cell count 10,900 with 75% segmenters. The patient's hemoglobin is 10.8 g/dL. In the emergency room, the patient's BUN and creatinine were 44 and 1.99 respectively. The patient's B- type natriuretic peptide level was slightly elevated at 180. The patient's sodium was 131. Urine test reveals slightly cloudy yellow urine with many bacteria and 11 to 20 white blood cells per high-power field and positive nitrites. Chest x-ray performed in the emergency room revealed enlarged cardiac silhouette with moderate central pulmonary venous congestion as well as bilateral patchy predominantly interstitial opacities extending from the chano. There was also partial obscuration of the left hemidiaphragm suggestive of a small left pleural effusion and likely associated left lower lobe atelectasis. The patient was admitted for further evaluation and treatment. REVIEW OF SYSTEMS: GENERAL: The patient has lost 10 pounds over the last month according to family members. She has had shaking chills. No shaking chills according to family members over the last week. She has also had low-grade temperature in the last few days. Moreover, she has been more confused last week. HEENT: No headaches. No visual changes. CARDIOVASCULAR/RESPIRATORY: She has had a deep cough for the last 2 days according to family members and she has been more short of breath. No chest pain or tightness. GI: No nausea, vomiting, diarrhea, or constipation. : She has a history of recurrent ESBL urinary tract infections. NEUROMUSCULAR: Her gait has been unsteady in the last week. She has also become more tremulous and has had near falls according to family members. No focal limb weakness or numbness. ALLERGIES: 1. PENICILLIN. 2. NITROFURANTOIN. 3. PROPOXYPHENE. 4. SULFAMETHOXAZOLE. 5. LEVOFLOXACIN. PAST MEDICAL HISTORY: 1. Chronic diastolic congestive heart failure. 2. Mild cognitive impairment. 3. Stage 3 chronic kidney disease. 4. Chronic bronchitis. 5. 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 6. Chronic nocturnal oxygen use. 7. Type 2 diabetes mellitus with diabetic peripheral neuropathy. 8. Cervical disk disease with episodic radiculitis. 9. Hypothyroidism. 10. Dyslipidemia. 11. GERD. 12. Hypertensive heart disease. PAST SURGICAL HISTORY: 1. Laparoscopic cholecystectomy. 2. Abdominal hernia repair. 3. Left breast lumpectomy (benign). FAMILY HISTORY: Mother of colon cancer. Father had type 2 diabetes. SOCIAL HISTORY: This woman is and lives with her . The patient has no history of tobacco use. The patient states she does drink alcohol socially. The patient's adult son namely, Mr. Isaiah Goldberg is the medical power of privacy attorney and is the prime decision maker. HOME MEDICATIONS: 1. Amitriptyline 50 mg at bedtime. 2. Aspirin 81 mg daily. 3. Carvedilol 25 mg b.i.d. 4. Furosemide 80 mg b.i.d. 5. Gabapentin 300 mg daily. 6. Levothyroxine 50 mcg daily. 7. Magnesium oxide 400 mg daily. 8. Nifedipine XL 60 mg daily. 9. Ranitidine 300 mg daily. 10. Senna with docusate one tablet every night. 11. Tresiba insulin 30 units subcutaneous daily. PHYSICAL EXAMINATION: GENERAL: She is awake and alert. She is oriented to self, not time or place. She becomes confused easily. She seems more confused. Her cognitive status seems worse than usual. She does not appear to be in any distress. VITAL SIGNS: The patient's height is 5 feet 3 inches, weight is 165 pounds, blood pressure is 147/67, pulse is 88, respiratory rate is 22, oxygen saturation is 95% on 3 L of oxygen, and temperature 99.9. INTEGUMENT: Skin is warm and dry. She has slight pallor. No jaundice or diaphoresis. No skin breakdown or ulcerations appreciates. HEENT: The anterior sclerae. Moist mucous membranes. She is edentulous. NECK: Supple. No evidence of jugular venous distention. CARDIOVASCULAR: Distant heart sounds. Regular rate and rhythm with an S3 gallop. LUNGS: The patient has crackles and faint rhonchi in the bilateral lung dunn. ABDOMEN: Benign. EXTREMITIES: No edema or deformity. NEUROLOGIC: She is bedbound. No gross focal deficits appreciated. DIAGNOSES: 1. Sepsis secondary to urinary tract infection. 2. Left lower lobe pneumonia, likely gram-negative duong. 3. Swkpj-dv-dtvoggh renal insufficiency. 4. Altered mentation secondary to metabolic encephalopathy from sepsis. 5. History of stage 3 chronic kidney disease. 6. Kjmbk-zl-ftjcbtx diastolic congestive heart failure. 7. Mild dementia. PLAN: 1. Order 2D echocardiogram. 2. Gentle intravenous fluids. 3. Intravenous antibiotics for the patient's urinary tract infection and pneumonia. 4. Follow urine and blood cultures. 5. We will proceed with physical therapy. 6. I discussed end of life issues with the family and they have decided to proceed with home hospice care after discharge. 7. The family decided to proceed with home hospice care after she is medically stabilized during this hospitalization. 8. Follow renal function. I spent 50 minutes in the care of this patient. MD KELVIN Limon/CARINE /[id number] MTDIndia
[2019-04-19] VITALS (7 sets, daily range): BP systolic 109–181; BP diastolic 54–81
--- NOTE | 2019-04-19 | NUR ---
patient refused blood draw
[2019-04-19] MEDS: FAMOTIDINE 20 MG TAB PO SCH ×3 (01:25→23:00)
[2019-04-19] MEDS: IPRATROPIUM BROMIDE 0.02% 2.5 ML NEB NEB SCH ×4 (03:00→14:05)
[2019-04-19] MEDS: ALBUTEROL SULF 0.083% NEB SOLN 3 ML NEB NEB SCH ×4 (03:00→15:44)
--- NOTE | 2019-04-19 04:48 | NUR ---
Dr. Bolanos office paged, awaiting call back. sf=[phone]
[2019-04-19] MEDS: NIFEDIPINE CR 30 MG TAB PO SCH (05:45)
--- NOTE | 2019-04-19 06:20 | NUR ---
Dr. Bolanos called back and ordered to give patient due Nifidipine
[2019-04-19 06:27] LABS: BASOPHILS % 0.3 % (0.0-1.0); EOSINOPHILS # (AUTO) 0.2 (0.0-0.4); EOSINOPHILS % 1.4 % (0.0-6.0); HEMATOCRIT 36.2 % (34.2-44.1); HEMOGLOBIN 10.9 g/dL (12.0-16.0); LYMPHOCYTES # (AUTO) 1.1 (1.0-3.2); LYMPHOCYTES % 10.3 % (18.0-39.1); MEAN CORPUSCULAR HEMOGLOBIN 24.7 pg (28-32); MEAN CORPUSCULAR HGB CONC 30.1 g/dL (31-35); MEAN CORPUSCULAR VOLUME 81.9 fL (81-99); MONOCYTES # (AUTO) 0.8 (0.2-0.8); MONOCYTES % 6.9 % (4.4-11.3); NEUTROPHILS # (AUTO) 8.8 (2.1-6.9); NEUTROPHILS % 80.7 % (38.7-80.0); PLATELET COUNT 139 x10e3/uL (140-360); RED BLOOD COUNT 4.42 x10e6/uL (3.6-5.1); RED CELL DISTRIBUTION WIDTH 17.5 % (11.7-14.4)
[2019-04-19 06:58] LABS: ALBUMIN 2.6 g/dL (3.5-5.0); ALBUMIN/GLOBULIN RATIO 0.6 (0.8-2.0); ANION GAP 12.9 mmol/L (8-16); CALCIUM 9.6 mg/dL (8.4-10.2); CREATININE, SERUM 1.11 mg/dL (0.57-1.11); POTASSIUM 3.9 mmol/L (3.5-5.1)
--- NOTE | 2019-04-19 07:39 | Diagnostic Imaging Report ---
Examination: Single AP view of the chest. COMPARISON: Portable chest 04/17/2019 INDICATION: Acute on chronic renal failure, CHF, left lower lobe pneumonia IMPRESSION: 1. Lines and Tubes: None 2. Lungs are hypoinflated. No interval change in left retrocardiac/lower lobe airspace opacity, consistent with pneumonia. Developing patchy opacity in the right upper lobe may represent additional pneumonia. 3. Stable prominence of the cardiac silhouette, which may be partly due to AP projection and low lung volumes. Central pulmonary venous crowding. 4. No acute bony abnormalities. Signed by: Dr. Se Barber M.D. on 04/19/2019 7:35 AM
[2019-04-19] MEDS: GABAPENTIN 300 MG CAP PO SCH ×3 (08:15→21:00)
[2019-04-19] MEDS: CARVEDILOL 12.5 MG TAB PO SCH ×2 (08:15→15:58)
[2019-04-19] MEDS: LEVOTHYROXINE SODIUM 50 MCG TAB PO SCH (08:15)
[2019-04-19] MEDS: ASPIRIN 81 MG CHEW TAB PO SCH (08:15)
[2019-04-19] MEDS: INSULIN LISPRO 100 UNIT/1 ML 3ML VIAL SQ SCH ×4 (08:23→21:00)
[2019-04-19] MEDS ORDERED: NON-FORMULARY MEDICATION (Ranitidine Hcl 300 MG) PO SCH (09:00)
[2019-04-19] MEDS ORDERED: FUROSEMIDE INJ 10 MG/ML 4 ML VIAL IV ONE (09:30)
[2019-04-19] MEDS: MEROPENEM 500MG/ NS 50ML 50 ML IV SCH ×2 (09:32→15:58)
--- NOTE | 2019-04-19 11:25 | NUR ---
ASSESSMENT: Spiritual concern Pt's grateful for his , family, and friends. Pt identifies as non-latter day [employer]. Intervention: Provided empathic listening and pastoral presence. Facilitated life review and illness review. Provided prayer. Outcome: Will follow as able. MANUEL DELEON Verification Engineer Spiritual Care Department O: [phone] Pager: [phone] ([phone] number calling from)
--- NOTE | 2019-04-19 19:51 | NUR ---
RECEIVED PT IN BED AOX3 SLEEPING ON THE NO ACUTE DISTRESS NOTED .FAMILY AT THE BEDSIDE .DENIES PAIN .CALL LIGHT WITH IN REACH .CONTINUE TO MONITOR
[2019-04-19] MEDS: SENNA-S TABLET PO SCH (21:00)
[2019-04-20] MEDS: MEROPENEM 500MG/ NS 50ML 50 ML IV SCH ×3 (01:00→17:41)
[2019-04-20 06:25] VITALS: BP 161/72
[2019-04-20 06:38] LABS: BASOPHILS % 0.3 % (0.0-1.0); EOSINOPHILS # (AUTO) 0.2 (0.0-0.4); EOSINOPHILS % 2.7 % (0.0-6.0); HEMATOCRIT 38.3 % (34.2-44.1); HEMOGLOBIN 11.6 g/dL (12.0-16.0); LYMPHOCYTES # (AUTO) 1.1 (1.0-3.2); MEAN CORPUSCULAR HEMOGLOBIN 25.1 pg (28-32); MEAN CORPUSCULAR HGB CONC 30.3 g/dL (31-35); MEAN CORPUSCULAR VOLUME 82.9 fL (81-99); MONOCYTES # (AUTO) 0.6 (0.2-0.8); MONOCYTES % 6.6 % (4.4-11.3); NEUTROPHILS # (AUTO) 6.8 (2.1-6.9); NEUTROPHILS % 78.2 % (38.7-80.0); PLATELET COUNT 158 x10e3/uL (140-360); RED BLOOD COUNT 4.62 x10e6/uL (3.6-5.1); RED CELL DISTRIBUTION WIDTH 17.6 % (11.7-14.4)
[2019-04-20] MEDS: ALBUTEROL SULF 0.083% NEB SOLN 3 ML NEB NEB SCH ×4 (06:50→19:20)
[2019-04-20] MEDS: IPRATROPIUM BROMIDE 0.02% 2.5 ML NEB NEB SCH ×4 (06:55→19:20)
--- NOTE | 2019-04-20 07:08 | NUR ---
RECEIVED PATIENT RESTING IN BED. NO ACUTE DISTRESS NOTED. NO S/S OF PAIN NOTED. CALL LIGHT WITHIN REACH. BED IN THE LOWEST POSITION.
[2019-04-20 07:12] LABS: ALBUMIN 2.6 g/dL (3.5-5.0); ALBUMIN/GLOBULIN RATIO 0.6 (0.8-2.0); CALCIUM 10.6 mg/dL (8.4-10.2); CREATININE, SERUM 1.01 mg/dL (0.57-1.11)
[2019-04-20] MEDS: INSULIN LISPRO 100 UNIT/1 ML 3ML VIAL SQ SCH ×4 (07:30→21:15)
--- NOTE | 2019-04-20 07:33 | NUR ---
BEDSIDE REPORT GIVEN TO THE ONCOMING NURSE
[2019-04-20] MEDS: ASPIRIN 81 MG CHEW TAB PO SCH (09:00)
[2019-04-20] MEDS: CARVEDILOL 12.5 MG TAB PO SCH ×2 (09:00→17:41)
[2019-04-20] MEDS: GABAPENTIN 300 MG CAP PO SCH ×3 (09:00→21:00)
[2019-04-20] MEDS: LEVOTHYROXINE SODIUM 50 MCG TAB PO SCH (09:01)
[2019-04-20] MEDS: NIFEDIPINE CR 30 MG TAB PO SCH (09:01)
[2019-04-20 09:27] VITALS: BP 165/85
[2019-04-20 10:11] VITALS: BP 165/85
--- NOTE | 2019-04-20 10:17 | Discharge Summary ---
ADMITTING DIAGNOSES: 1. Sepsis secondary to urinary tract infection. 2. Acute on chronic renal insufficiency. 3. Acute on chronic diastolic heart failure. 4. Mild dementia. 5. Altered mentation secondary to metabolic encephalopathy from sepsis. 6. Left lower lobe pneumonia. DISCHARGE DIAGNOSES: 1. Sepsis secondary to Escherichia coli urinary tract infection, resolving. 2. Left lower lobe pneumonia, likely gram-negative duong. 3. Acute on chronic renal insufficiency, resolved. 4. Stage 3 chronic kidney disease. 5. Altered mentation secondary to metabolic encephalopathy from sepsis, resolved. 6. Mild dementia. 7. Acute on chronic diastolic congestive heart failure, resolving. 8. Acute right thumb gouty attack. 9. Hyperuricemia. HOSPITAL COURSE: This is an 89-year-old white woman, who was initially admitted to [facility] with a diagnosis of sepsis secondary to urine tract infection as well as acute on chronic renal insufficiency. During this hospitalization, she was also diagnosed with acute on chronic diastolic heart failure as well as left lower lobe pneumonia. Urine culture during this hospitalization revealed the presence of ESBL E. coli bacterial species. The patient improved dramatically with intravenous meropenem in regard to her sepsis. The patient's acute on chronic renal insufficiency improved with gentle intravenous fluids. The patient's acute congestive heart failure actually improved with one dose of intravenous furosemide. The patient had blood cultures drawn during this hospitalization, which did not reveal any bacterial growth. The decision was made to transfer the patient to a local long-term acute care facility, namely [facility] where she could receive intravenous meropenem for 7 to 10 days in regard to ESBL urinary tract infection and left lower lobe pneumonia that was thought to be secondary to gram-negative duong bacterial species. Her brief hospitalization here was unremarkable. When she was initially admitted to [facility], her white blood cell count was 10,900 with 75% segmented neutrophils. On day of discharge, white blood cell count was 8700 with 78% segmented neutrophils. Also on admission, the patient's BUN and creatinine were 44 and 1.99, respectively. On day of discharge, the patient's BUN and creatinine were 25 and 1.01 respectively. Serum uric acid level was 12.3 mg/dl. The patient's condition on day of transfer was stable with an overall fair prognosis. DISCHARGE MEDICATIONS: 1. Meropenem 500 mg intravenous every 8 hours. 2. Albuterol sulfate/ipratropium bromide nebulized treatments every 6 hours as scheduled. 3. Aspirin 81 mg daily. 4. Ondansetron 4 mg intravenous every 4 hours p.r.n. nausea or vomiting. 5. Gabapentin 300 mg t.i.d. 6. Nifedipine 60 mg daily. 7. Levothyroxine 50 mcg daily. 8. Carvedilol 25 mg b.i.d. 9. Humalog insulin sliding scale. 10. Famotidine 20 mg intravenous every 12 hours. 11. Acetaminophen 650 mg every 6 hours p.r.n. fever or mild pain. 12. Senna with docusate one pill every night. 13. Tresiba insulin 30 units subcutaneous daily. 14. Colchicine 0.6 mg b.i.d. FOLLOWUP INSTRUCTIONS: As previously stated, the patient will be transferred to a local long-term acute care facility namely [facility], where she will be under the care of her attending, myself Dr. Duncan Bolanos. MD KELVIN Limon/CARINE /[id number] cc: MD Bela Morrison MD MTDD
--- NOTE | 2019-04-20 10:57 | NUR ---
[facility] ORDER RECEIVED. MET W THE PT AND AT THE BEDSIDE. CHOICE PROVIDED FOR LTACH. THEY CHOSE [facility]. CHOICE LETTER WAS SIGNED. COPY TO PT AND COPY TO CHART. MOT INITIATED.
[2019-04-20] MEDS: FAMOTIDINE 20 MG TAB PO SCH (12:07)
[2019-04-20 12:24] VITALS: BP 157/72
--- NOTE | 2019-04-20 14:33 | NUR ---
LTACH TRANSFER DISCHARGE INFORMATION PATIENT HAS BEEN ACCEPTED TO: NAME: [facility] ADDRESS: [address] [place] [address] ACCEPTING INLETTER: ADM JOY ACCEPTING MD: ORESTES KNOWLES MD ROOM: 306 NURSE CALL REPORT TO: [phone] THE FOLLOWING DOCUMENTS MUST ACCOMPANY PATIENT FOR TRANSFER: COPIED CHART: BY [facility] INFO RECEIVED FROM: [facility] ORDER/RECONCILED MED LIST: BEDSIDE RN [id number] DNR: Addendum: 04/20/19 at 1437 by Brook Darby CM PT OK TO TRANSFER AFTER 7PM
[2019-04-20] MEDS ORDERED: KETOROLAC TROMETHAMINE 30 MG/ML VIAL IV STA (14:57)
[2019-04-20] MEDS ORDERED: MAGNESIUM HYDROXIDE 30 ML UDC PO ONE (15:30)
[2019-04-20] MEDS ORDERED: BISACODYL 5 MG TAB EC PO ONE (15:30)
--- NOTE | 2019-04-20 16:30 | NUR ---
PER FAMILY WAIT UNTIL PATIENT EATS FOR INSULIN BECAUSE SHE DROPS SOMETIMES, EVEN THO BG IS 239.
[2019-04-20] MEDS ORDERED: COLCHICINE 0.6 MG TAB PO SCH (17:00)
[2019-04-20 17:15] VITALS: BP 131/66
--- NOTE | 2019-04-20 18:15 | NUR ---
ATTEMPTED TO GIVE REPORT TO NURSE AT [place], NO ANSWER.
--- NOTE | 2019-04-20 18:31 | NUR ---
ATTEMPTED TO GIVE REPORT TO NURSE AT [place] ONE MORE TIME. 10 MINUTES ON HOLD, NO ANSWER. WILL ATTEMPT TO CALL BACK LATER.
--- NOTE | 2019-04-20 18:50 | NUR ---
ATTEMPTED TO GIVE REPORT TO NURSE AT [place], PLACED ON HOLD, NOBODY PICKED UP CALL. WILL PASS DOWN THE MESSAGE TO ONCOMING NURSE.
--- NOTE | 2019-04-20 19:28 | NUR ---
ATTEMPTED TO CALL [facility] WAS PLACED ON HOLD FOR EXTENDED PERIOD OF TIME WILL FOLLOW UP AND TRY AGAIN.
--- NOTE | 2019-04-20 19:45 | NUR ---
FINALLY GOT REPORT TO [facility], INFORMED OUTSIDE PLANT SUPERVISOR TO CALL AMBULANCE, AWAITING FOR THEM TO ARRIVE.
[2019-04-20 20:16] VITALS: BP 109/56
[2019-04-20] MEDS: SENNA-S TABLET PO SCH (21:00)
--- NOTE | 2019-04-20 21:15 | NUR ---
PATIENT IN STABLE CONDITION, NO SIGNS OF DISTRESS NOTED. FAMILY MEMBER AT BEDSIDE AND PATIENT IN DEEP SLEEP. ORAL MEDICATION WAS NOT GIVEN DUE TO PATIENT NOT BEING ALERT ENOUGH TO SWALLOW. BED IS LOCKED IN LOWEST POSITION, BOTH SIDE RAILS ARE UP, CALL LIGHT WITHIN REACH, WILL CONTINUE TO MONITOR.
--- NOTE | 2019-04-20 21:30 | NUR ---
[facility] HAS ARRIVED TO TRANSFER PATIENT.
[2019-04-21] MEDS ORDERED: LEVOTHYROXINE SODIUM 50 MCG TAB PO SCH (06:00)
== END 2019-04-20 21:55 | DRG 871 ==
LOC: ER 22:18 → ERHOLD 04-18 01:47 → MED/SURG3 04-18 03:10
PROVIDERS: ADMIT Internal Medicine; ATTEND Internal Medicine
DX: A41.51 Sepsis due to Escherichia coli [E. coli] (principal); I50.33 Acute on chronic diastolic (congestive) heart failure; G93.41 Metabolic encephalopathy; J18.1 Lobar pneumonia, unspecified organism; J15.6 Pneumonia due to other Gram-negative bacteria; N39.0 Urinary tract infection, site not specified; I13.0 Hypertensive heart and chronic kidney disease with heart failure and stage 1 through stage 4 chronic kidney disease, or unspecified chronic kidney disease; N17.9 Acute kidney failure, unspecified; E87.1 Hypo-osmolality and hyponatremia; A41.9 Sepsis, unspecified organism; N18.3 Chronic kidney disease, stage 3 (moderate); R65.20 Severe sepsis without septic shock; M10.041 Idiopathic gout, right hand; Z16.12 Extended spectrum beta lactamase (ESBL) resistance; F03.90 Unspecified dementia, unspecified severity, without behavioral disturbance, psychotic disturbance, mood disturbance, and anxiety; Z88.0 Allergy status to penicillin; Z88.2 Allergy status to sulfonamides
CPT/HCPCS: 36415; 36600; 71045; 80053; 80061; 81001; 82550; 82553; 82805; 82948; 83735; 83880; 84443; 84484; 84550; 85025; 85610; 85730; 87040; 87086; 87186; 93005; 93306; 94640; 97139; 99284; J1885; J1940; J2185; J7030

== ENCOUNTER 2019-05-19 13:16 | Inpatient (IN) | payer MEDICARE, OTHER ==
[~2019-05-19] VITALS: Ht 160 cm; Wt 76.2 kg
[~2019-05-19 13:16] MED LIST changes: +LASIX40 MG PO; +PROCARDIA XL30 MG PO; +SENNA-DOCUSATE1 EACH PO; +tresiba SC
[2019-05-19] MEDS ORDERED: DEXTROSE 5% 500ML 500 ML IV ONE (14:00)
[2019-05-19 14:02] LABS: BASOPHILS % 0.4 % (0.0-1.0); EOSINOPHILS # (AUTO) 0.8 (0.0-0.4); EOSINOPHILS % 9.6 % (0.0-6.0); HEMATOCRIT 35.4 % (34.2-44.1); HEMOGLOBIN 10.7 g/dL (12.0-16.0); LYMPHOCYTES # (AUTO) 1.5 (1.0-3.2); LYMPHOCYTES % 18.7 % (18.0-39.1); MEAN CORPUSCULAR HEMOGLOBIN 25.3 pg (28-32); MEAN CORPUSCULAR HGB CONC 30.2 g/dL (31-35); MEAN CORPUSCULAR VOLUME 83.7 fL (81-99); MONOCYTES # (AUTO) 0.4 (0.2-0.8); MONOCYTES % 4.4 % (4.4-11.3); NEUTROPHILS # (AUTO) 5.4 (2.1-6.9); NEUTROPHILS % 66.5 % (38.7-80.0); PLATELET COUNT 132 x10e3/uL (140-360); RED BLOOD COUNT 4.23 x10e6/uL (3.6-5.1); RED CELL DISTRIBUTION WIDTH 22.5 % (11.7-14.4)
[2019-05-19] MEDS ORDERED: DEXTROSE 10% 1,000 ML IV ONE (14:02)
[2019-05-19 14:16] LABS: INR 0.91; PARTIAL THROMBOPLASTIN TIME 29.5 seconds (23.8-35.5); PROTHROMBIN TIME 12.7 seconds (11.9-14.5)
[2019-05-19 14:26] LABS: ALBUMIN/GLOBULIN RATIO 0.8 (0.8-2.0); CALCIUM 9.8 mg/dL (8.4-10.2); CREATININE, SERUM 1.54 mg/dL (0.57-1.11); MAGNESIUM 2.5 MG/DL (1.3-2.1)
[2019-05-19 14:33] LABS: CREATINE KINASE MB 1.2 ng/mL (0-5.0)
--- NOTE | 2019-05-19 15:34 | Diagnostic Imaging Report ---
CT BRAIN WO HISTORY: Altered mental status COMPARISON: Report from head CT dated 01/16/2017 Technique: Noncontrast axial scans were obtained from skull base to the vertex. Coronal and sagittal reconstructions obtained from the axial data. One or more of the following dose reduction techniques were used: Automated exposure control, adjustment of the mA and/or kV according to patient size, and/or utilization of iterative reconstruction technique. DISCUSSION: Scalp/Skull: Unremarkable. Brain sulci: Mildly prominent. Ventricles: Compensatory dilatation. Extra-axial spaces: No masses or fluid collections. Carotid and vertebral artery calcifications are present. Parenchyma: Moderate bilateral deep white matter hypodensity is likely chronic microvascular ischemic change. Otherwise, no masses, hemorrhage, or large vascular territory acute infarct. Dural sinuses: No abnormal densities. Sellar/Suprasellar region: Intact. Skull base: Intact. Incidental findings: Bilateral ocular lens replacement. Minimal bilateral ethmoid air cell mucosal thickening. IMPRESSION: 1. No acute intracranial abnormalities. 2. Moderate supratentorial chronic microvascular ischemic change. Generalized cerebral volume loss. Signed by: Dr. Wally Jacinto M.D. on 05/19/2019 3:30 PM
--- NOTE | 2019-05-19 15:34 | Diagnostic Imaging Report ---
Examination: Single AP view of the chest. COMPARISON: April 09, 2019 INDICATION: Altered mental status DISCUSSION: Lines/tubes: None. Lungs: The lungs are well inflated and clear. No pneumonia or pulmonary edema. Pleura: No pleural effusion or pneumothorax. Heart and mediastinum: The heart and the mediastinum are unremarkable. Bones and soft tissues: No acute bony abnormalities. IMPRESSION: 1. No acute cardiopulmonary abnormalities. Signed by: Dr. Franklin Brooke M.D. on 05/19/2019 3:30 PM
[2019-05-19 15:39] LABS: BILIRUBIN,URINE NEGATIVE (NEGATIVE); CLARITY,URINE CLEAR (CLEAR); COLOR,URINE YELLOW (YELLOW); KETONES,URINE NEGATIVE (NEGATIVE); LEUKOCYTE ESTERASE ,URINE MODERATE (NEGATIVE); NITRITE,URINE POSITIVE (NEGATIVE); PROTEIN,URINE DIPSTICK NEGATIVE (NEGATIVE); URINE UROBILINOGEN 0.2 mg/dL (0.2 - 1)
[2019-05-19 15:40] LABS: BACTERIA,URINE RARE /HPF; EPITHELIAL CELLS,URINE FEW /LPF; RBC,URINE 0-5 /HPF (0-5); WBC,URINE (MAN) 0-5 /HPF (0-5)
[2019-05-19] MEDS ORDERED: SODIUM CHLORIDE 0.9% 1000ML 1,000 ML IV ONE ×2 (17:45→21:45)
[2019-05-19] MEDS ORDERED: DEXTROSE 50% SYRINGE 50 ML IV PRN (17:45)
[2019-05-19] MEDS ORDERED: ONDANSETRON HCL INJ 2MG/ML 2ML 2 MG/ML VIAL IV PRN (17:45)
[2019-05-19 20:00] VITALS: BP 169/79
[2019-05-19] MEDS: INSULIN LISPRO 100 UNIT/1 ML 3ML VIAL SQ SCH (21:00)
[2019-05-19] MEDS ORDERED: INFLUENZA VIRUS VAC SPLIT INJ 0.5 ML SYR IM SCH (21:51)
[2019-05-19 21:57] VITALS: BP 169/79
[2019-05-20] VITALS (7 sets, daily range): BP systolic 110–154; BP diastolic 54–84
[2019-05-20] MEDS ORDERED: TYLENOL325 M2 PO (01:37)
[2019-05-20] MEDS ORDERED: PANTOPRAZOLE SO40 MG PO (01:37)
[2019-05-20] MEDS ORDERED: POTASSIUM CHLO10 ME1 PO (01:37)
[2019-05-20 01:50] LABS: CREATINE KINASE MB 0.6 ng/mL (0-5.0)
[2019-05-20 06:06] LABS: BASOPHILS % 0.1 % (0.0-1.0); EOSINOPHILS # (AUTO) 0.6 (0.0-0.4); EOSINOPHILS % 6.5 % (0.0-6.0); HEMATOCRIT 35.6 % (34.2-44.1); HEMOGLOBIN 10.3 g/dL (12.0-16.0); LYMPHOCYTES # (AUTO) 1.7 (1.0-3.2); LYMPHOCYTES % 18.3 % (18.0-39.1); MEAN CORPUSCULAR HEMOGLOBIN 24.9 pg (28-32); MEAN CORPUSCULAR HGB CONC 28.9 g/dL (31-35); MEAN CORPUSCULAR VOLUME 86.2 fL (81-99); MONOCYTES # (AUTO) 0.5 (0.2-0.8); MONOCYTES % 5.8 % (4.4-11.3); NEUTROPHILS # (AUTO) 6.4 (2.1-6.9); PLATELET COUNT 130 x10e3/uL (140-360); RED BLOOD COUNT 4.13 x10e6/uL (3.6-5.1); RED CELL DISTRIBUTION WIDTH 22.4 % (11.7-14.4)
--- NOTE | 2019-05-20 06:52 | NUR ---
RECEIVED REPORT FROM OFF GOING NURSE. WALKING ROUNDS DONE. PATIENT IS RESTING IN BED. NO ACUTE DISTRESS NOTED AT THIS TIME. NO S/S OF PAIN NOTED. CALL LIGHT WITHIN REACH. BED IN THE LOWEST POSITION.
[2019-05-20 06:58] LABS: ALBUMIN/GLOBULIN RATIO 0.9 (0.8-2.0); ANION GAP 12.6 mmol/L (8-16); CALCIUM 10.1 mg/dL (8.4-10.2); CREATININE, SERUM 1.2 mg/dL (0.57-1.11); POTASSIUM 4.6 mmol/L (3.5-5.1)
--- NOTE | 2019-05-20 06:58 | NUR ---
REPORT GIVEN TO ONCOMING NURSE,WALKING ROUNDS MADE.PT RESTING IN BED WITH NO S/S OF DISTRESS.
[2019-05-20 07:16] LABS: CREATINE KINASE MB 0.7 ng/mL (0-5.0)
[2019-05-20] MEDS: INSULIN LISPRO 100 UNIT/1 ML 3ML VIAL SQ SCH ×4 (07:30→21:00)
--- NOTE | 2019-05-20 09:30 | NUR ---
PATIENT TO BE TRANSFERRED TO ROOM 103. REPORT CALLED IN TO RECEIVING NURSE.
--- NOTE | 2019-05-20 09:30 | NUR ---
RECEIVED PT TO FLOOR [id number]. ABLE TO ANSWER ALL QUESTIONS WHEN ASKED BRYAN AT BEDSIDE PT IS IN NO S.S OF DISTRESS DENIES PAIN IV TO THE LEFT FA 20 WITH FLUIDS SITE IS CLEAN AND DRY PT IS ON O2 2L NC WILL CONTINUE TO MONITOR PT CLOSELY SIDE RAILSX2, BED WHEELS LOCKED, CALL LIGHT IS WITHIN EASY REACH INSTRUCTED TO CALL FOR ASSISTANCE IF NEEDED
--- NOTE | 2019-05-20 09:32 | NUR ---
PATIENT TRANSFERRED TO ROOM 103 AT THIS TIME.
[2019-05-20] MEDS ORDERED: ACETAMINOPHEN 325 MG TAB PO SCH (12:00)
[2019-05-20] MEDS ORDERED: ACETAMINOPHEN 325 MG TAB PO PRN (12:00)
[2019-05-20] MEDS: NIFEDIPINE CR 30 MG TAB PO SCH (12:08)
[2019-05-20] MEDS: MEROPENEM 1GM 100 ML IV SCH ×2 (12:08→20:26)
[2019-05-20] MEDS: PANTOPRAZOLE SOD 40 MG TABEC PO SCH ×2 (12:46→17:10)
[2019-05-20] MEDS: GABAPENTIN 300 MG CAP PO SCH ×2 (15:28→20:26)
[2019-05-20] MEDS: CARVEDILOL 12.5 MG TAB PO SCH (17:10)
--- NOTE | 2019-05-20 19:36 | NUR ---
RECEIVED PT IN BED AOX3 .DENIES PAIN RESPIRATIONS ARE EVEN AND UNLABORED ..CALL LIGHT WITH IN REACH .CONTINUE TO MONITOR
[2019-05-20] MEDS: SENNA-S TABLET PO SCH (20:26)
[2019-05-20] MEDS ORDERED: SODIUM CHLORIDE 0.9% 1000ML 1,000 ML IV SCH (21:00)
[2019-05-21] VITALS (8 sets, daily range): BP systolic 126–142; BP diastolic 60–85
[2019-05-21] MEDS: LEVOTHYROXINE SODIUM 50 MCG TAB PO SCH (06:00)
[2019-05-21 06:26] LABS: BASOPHILS % 0.4 % (0.0-1.0); EOSINOPHILS # (AUTO) 0.6 (0.0-0.4); EOSINOPHILS % 6.7 % (0.0-6.0); HEMATOCRIT 37.8 % (34.2-44.1); HEMOGLOBIN 11.3 g/dL (12.0-16.0); LYMPHOCYTES # (AUTO) 1.7 (1.0-3.2); LYMPHOCYTES % 20.3 % (18.0-39.1); MEAN CORPUSCULAR HEMOGLOBIN 25.4 pg (28-32); MEAN CORPUSCULAR HGB CONC 29.9 g/dL (31-35); MEAN CORPUSCULAR VOLUME 84.9 fL (81-99); MONOCYTES # (AUTO) 0.5 (0.2-0.8); MONOCYTES % 6.2 % (4.4-11.3); NEUTROPHILS # (AUTO) 5.4 (2.1-6.9); NEUTROPHILS % 66.2 % (38.7-80.0); PLATELET COUNT 131 x10e3/uL (140-360); RED BLOOD COUNT 4.45 x10e6/uL (3.6-5.1); RED CELL DISTRIBUTION WIDTH 22.9 % (11.7-14.4)
[2019-05-21 06:48] LABS: ANION GAP 13.9 mmol/L (8-16); CALCIUM 10.4 mg/dL (8.4-10.2); CREATININE, SERUM 1.04 mg/dL (0.57-1.11); POTASSIUM 4.9 mmol/L (3.5-5.1)
[2019-05-21] MEDS: INSULIN LISPRO 100 UNIT/1 ML 3ML VIAL SQ SCH ×4 (07:30→21:00)
--- NOTE | 2019-05-21 07:34 | NUR ---
PT RESTED DURING THE NIGHT .DENIES PAIN .CALL LIGHT WITH IN REACH .CONTINUE TO MONITOR .BEDSIDE REPORT GIVEN TO THE ONCOMING NURSE
[2019-05-21] MEDS: PANTOPRAZOLE SOD 40 MG TABEC PO SCH ×2 (08:30→16:10)
[2019-05-21] MEDS ORDERED: NIFEDIPINE CR 30 MG TAB PO SCH (09:00)
--- NOTE | 2019-05-21 09:00 | NUR ---
MD KNOWLES INTO SEE PT, DISCUSSED POC
[2019-05-21] MEDS: MEROPENEM 1GM 100 ML IV SCH ×2 (09:14→21:20)
[2019-05-21] MEDS: NIFEDIPINE CR 30 MG TAB PO SCH (09:15)
[2019-05-21] MEDS: CARVEDILOL 12.5 MG TAB PO SCH ×2 (09:15→16:29)
[2019-05-21] MEDS: ASPIRIN 81 MG CHEW TAB PO SCH (09:15)
[2019-05-21] MEDS: GABAPENTIN 300 MG CAP PO SCH ×3 (09:15→21:20)
--- NOTE | 2019-05-21 11:30 | NUR ---
PT AMBULATED WITH PHYSICAL THERAPY APPROX 100FT, NOW SITTING IN BS CHAIR, CALL LIGHT WITHIN REACH
--- NOTE | 2019-05-21 11:57 | NUR ---
PT BACK IN BED PER REQUEST, VOICES NO NEEDS AT THIS TIME, CALL LIGHT WITHIN REACH
--- NOTE | 2019-05-21 12:45 | NUR ---
PT TRANSFERRED FROM 103 TO 285. AT SIDE. NO COMPLAINS VOICE.
--- NOTE | 2019-05-21 12:54 | NUR ---
PT TRANSFERRED TO ROOM 285, REPORT TO PIPO SMITH TAKING OVER CARE, NO CHANGE IN CONDITION
--- NOTE | 2019-05-21 14:25 | NUR ---
PT SITTING ON SIDE OF BED. RT NARES BLEEDING. PT CLEANUP AND NEW GOWN PLACE ON PT. AT BEDSIDE.
--- NOTE | 2019-05-21 19:00 | NUR ---
BEDSIDE REPORT GIVEN. VISITORS AT BEDSIDE.
--- NOTE | 2019-05-21 19:08 | NUR ---
Received bedside report from day nurse. Patient resting in bed, no s/s of distress or c/o pain at this time.. All safety measures in place. Will continue to monitor.
[2019-05-21] MEDS: SENNA-S TABLET PO SCH (21:20)
[2019-05-22] VITALS: BP 146/66
[2019-05-22 04:00] VITALS: BP 168/77
[2019-05-22] MEDS: LEVOTHYROXINE SODIUM 50 MCG TAB PO SCH (05:15)
[2019-05-22 06:28] LABS: BASOPHILS % 0.5 % (0.0-1.0); EOSINOPHILS # (AUTO) 0.6 (0.0-0.4); EOSINOPHILS % 8.7 % (0.0-6.0); HEMATOCRIT 37.8 % (34.2-44.1); HEMOGLOBIN 11.2 g/dL (12.0-16.0); LYMPHOCYTES # (AUTO) 1.3 (1.0-3.2); LYMPHOCYTES % 19.4 % (18.0-39.1); MEAN CORPUSCULAR HEMOGLOBIN 25.3 pg (28-32); MEAN CORPUSCULAR HGB CONC 29.6 g/dL (31-35); MEAN CORPUSCULAR VOLUME 85.5 fL (81-99); MONOCYTES # (AUTO) 0.4 (0.2-0.8); MONOCYTES % 5.4 % (4.4-11.3); NEUTROPHILS # (AUTO) 4.3 (2.1-6.9); NEUTROPHILS % 65.8 % (38.7-80.0); PLATELET COUNT 126 x10e3/uL (140-360); RED BLOOD COUNT 4.42 x10e6/uL (3.6-5.1); RED CELL DISTRIBUTION WIDTH 22.5 % (11.7-14.4)
[2019-05-22 06:53] LABS: ALBUMIN 2.9 g/dL (3.5-5.0); ALBUMIN/GLOBULIN RATIO 0.8 (0.8-2.0); ANION GAP 14.8 mmol/L (8-16); CALCIUM 10.2 mg/dL (8.4-10.2); POTASSIUM 4.8 mmol/L (3.5-5.1)
[2019-05-22 07:20] VITALS: BP 176/77
--- NOTE | 2019-05-22 07:20 | NUR ---
PATIENT ASSISTED TO THE RESTROOM AND BACK TO BED, O2 IN PLACE VIA N/C. BED IN LOWER POSITION, CALL LIGHT AT REACH.
[2019-05-22] MEDS: INSULIN LISPRO 100 UNIT/1 ML 3ML VIAL SQ SCH (07:30)
[2019-05-22] MEDS: PANTOPRAZOLE SOD 40 MG TABEC PO SCH (07:30)
[2019-05-22 07:41] VITALS: BP 166/74
[2019-05-22] MEDS: ASPIRIN 81 MG CHEW TAB PO SCH (09:03)
[2019-05-22] MEDS: MEROPENEM 1GM 100 ML IV SCH (09:03)
[2019-05-22] MEDS: CARVEDILOL 12.5 MG TAB PO SCH (09:04)
[2019-05-22] MEDS: GABAPENTIN 300 MG CAP PO SCH (09:04)
[2019-05-22] MEDS: NIFEDIPINE CR 30 MG TAB PO SCH (09:05)
[2019-05-22] MEDS ORDERED: CIPRO500 MG PO (10:02)
--- NOTE | 2019-05-22 10:16 | NUR ---
GOT CHOICE FOR [facility], GOT PERMISSION FROM TO BE ABLE FOR FAMILY TO TAKE PT HOME IN PERSONAL VEHICLE AND HOSPICE WILL MEET AT THE HOME.
[2019-05-22] MEDS ORDERED: INFLUENZA VIRUS VAC SPLIT INJ 0.5 ML SYR IM SCH (10:30)
--- NOTE | 2019-05-22 11:28 | NUR ---
PATIENT READY FOR DISCHARGE HOME WITH HOSPICE. FLU VACCINE GIVEN TO LEFT DELTOID ORDERED. DISCHARGE PAPER GIVEN TO PATIENT AND . AWAITING FOR TRANSPORTATION.
--- NOTE | 2019-05-22 12:00 | NUR ---
PATIENT DISCHARGED HOME WITH HOSPICE. DISCHARGED INSTRUCTIONS GIVEN TO PATIENT AND , THEY VERBALIZED UNDERSTANDING. IV TO LEFT FOREARM REMOVED WITH TIP INTACT. ALL PERSONAL ITEMS TAKEN WITH PATIENT. LEFT UNIT TO FRONT LOBBY PER WHEEL CHAIR IN STABLE CONDITION.
--- NOTE | 2019-05-24 04:24 | Discharge Summary ---
ADMITTING DIAGNOSES: 1. Sepsis secondary to urinary tract infection. 2. Metabolic encephalopathy secondary to sepsis. 3. Medev-ft-[id number] renal failure. 4. Chronic diastolic congestive heart failure. DISCHARGE DIAGNOSES: 1. Sepsis secondary to Escherichia coli urinary tract infection, resolving. 2. Metabolic encephalopathy secondary to sepsis, resolved. 3. Acute renal insufficiency, resolved. 4. Chronic diastolic congestive heart failure. HOSPITAL COURSE: This is an 89-year-old white woman, who was initially admitted to [facility] with diagnosis of altered mentation secondary to metabolic encephalopathy from sepsis. It was concluded that her sepsis was secondary to urinary tract infection. During this hospitalization, urine culture revealed the presence of E coli bacterial species greater than 100,000 colony-forming units per mL urine. The patient improved clinically with intravenous meropenem. During this hospitalization, the patient was seen by urologist, namely, Dr. Raymundo Martinez. The patient's BUN and creatinine on admission were 59 and 1.54 respectively. On day of discharge, the patient's BUN and creatinine were 20 and 1.0 respectively. The patient was also admitted with diagnosis of hypoglycemia, but this resolved once Tresiba insulin was discontinued. CONDITION ON DISCHARGE: Stable with an overall guarded prognosis. The idea of hospice was discussed with the family and they decided to proceed with this type of care. DISCHARGE MEDICATIONS: 1. Ciprofloxacin 250 mg twice a day for 21 days. 2. Lasix 80 mg daily. 3. Levothyroxine 50 mcg daily. 4. Senna with docusate one every night. 5. Gabapentin 300 mg t.i.d. 6. Carvedilol 25 mg b.i.d. 7. Pantoprazole 40 mg b.i.d. 8. Nifedipine 60 mg daily. 9. Aspirin 81 mg daily. 10. Humalog insulin 2 units subcutaneous three times a day if glucose level is greater than 200 mg/dL. 11. Acetaminophen 650 mg every 6 hours p.r.n. pain or fever. FOLLOWUP INSTRUCTIONS: The patient will be discharged home under hospice care. MD KELVIN Limon/CARINE /[id number]
== END 2019-05-22 12:06 | disposition hospice, home (50) | DRG 871 ==
LOC: ER 13:16 → ERHOLD 17:43 → MED/SURG3 20:32 → MED/SURG 05-20 09:33 → OBSVTOIN 05-21 08:54 → MED/SURG3 05-21 12:41
PROVIDERS: ADMIT Internal Medicine; ATTEND Internal Medicine
DX: A41.9 Sepsis, unspecified organism (principal); G93.41 Metabolic encephalopathy; N39.0 Urinary tract infection, site not specified; N17.9 Acute kidney failure, unspecified; I13.0 Hypertensive heart and chronic kidney disease with heart failure and stage 1 through stage 4 chronic kidney disease, or unspecified chronic kidney disease; I50.32 Chronic diastolic (congestive) heart failure; B96.20 Unspecified Escherichia coli [E. coli] as the cause of diseases classified elsewhere; E11.22 Type 2 diabetes mellitus with diabetic chronic kidney disease; N18.9 Chronic kidney disease, unspecified; E03.9 Hypothyroidism, unspecified; E11.649 Type 2 diabetes mellitus with hypoglycemia without coma; J44.9 Chronic obstructive pulmonary disease, unspecified; E78.5 Hyperlipidemia, unspecified; N95.2 Postmenopausal atrophic vaginitis; R32 Unspecified urinary incontinence; Z66 Do not resuscitate; Z51.5 Encounter for palliative care; Z23 Encounter for immunization; Z79.4 Long term (current) use of insulin; Z82.49 Family history of ischemic heart disease and other diseases of the circulatory system; Z79.82 Long term (current) use of aspirin
CPT/HCPCS: 36415; 70450; 71045; 80048; 80053; 81001; 82550; 82553; 82948; 83735; 84484; 85025; 85610; 85730; 87086; 87186; 93005; 99284; G0378; J7030

== ENCOUNTER 2019-05-27 13:31 | Emergency (ER) | payer MEDICARE, OTHER ==
[~2019-05-27] VITALS: Ht 160 cm; Wt 76.2 kg
[~2019-05-27 13:31] MED LIST changes: +TYLENOL325 M2 PO
--- NOTE | 2019-05-27 14:42 | Diagnostic Imaging Report ---
LEFT WRIST X-RAY - 2 VIEWS HISTORY: Fall one month ago ^[id number] ^140 COMPARISON: None available. FINDINGS: Bones: Healing minimally displaced transverse fracture of the distal left radius. No intra-articular extension. Minimally displaced fracture of the ulna styloid. Diffuse bone demineralization. Joints: Moderate degenerative changes throughout the left hand. Soft tissues: The soft tissues appear unremarkable. IMPRESSION: Healing fractures of the distal left radius and ulnar styloid. Signed by: Dr. Cleopatra Bhatia M.D. on 05/27/2019 2:39 PM
== END 2019-05-27 14:43 | disposition home or self-care (01) ==
LOC: FSED 13:31
DX: M25.532 Pain in left wrist (principal); S52.125A Nondisplaced fracture of head of left radius, initial encounter for closed fracture; W18.30XA Fall on same level, unspecified, initial encounter; Y92.008 Other place in unspecified non-institutional (private) residence as the place of occurrence of the external cause; I10 Essential (primary) hypertension; E11.9 Type 2 diabetes mellitus without complications; E78.5 Hyperlipidemia, unspecified; J44.9 Chronic obstructive pulmonary disease, unspecified; I50.9 Heart failure, unspecified; E03.9 Hypothyroidism, unspecified
CPT/HCPCS: 99284